=== PATIENT | female | born 1960 | race Caucasian/White ===

== ENCOUNTER 2016-11-25 11:20 | Outpatient (CLI) | payer MEDICAID, MEDICARE ==
[2016-11-25 12:20] LABS: Eosinophils 3 % (0-10); Hemoglobin 12.1 g/dL (12.0-16.0); Lymphocytes 35 % (21-51); MDiff Complete? YES; Mean Corpuscular HGB CONC 34.3 g/dL (32.0-36.0); Mean Corpuscular Hemoglobin 32.6 pg (27.0-31.0); Mean Corpuscular Volume 95.1 fl (81.0-99.0); Mean Platelet Volume 8.4 fL (7.4-10.4); Monocytes 1 % (0-10); Neutrophil 61 % (42-75); PLT Morphology Comment PT HAS HX OF LOW PLATELET COUNT; Platelet Count 54 thou/uL (130-400); RBC Distribution Width 13.1 % (11.5-14.5)
[2016-11-25 13:17] LABS: White Blood Cell (WBC) Count 1.8 thou/uL (4.8-10.8)
[2016-11-25 15:45] LABS: ALT (SGPT) 16 U/L (0-55); AST (SGOT) 27 U/L (5-34); Albumin 3.2 g/dL (3.5-5.0); Alkaline Phosphatase 49 U/L (40-150); Anion Gap 10 mmol/L (10-20); BUN (Urea Nitrogen) 11 mg/dL (9.8-20.1); Bilirubin, Total 1.1 mg/dL (0.2-1.2); Calc. Creatinine Clearance 0 mL/min (70-130); Calcium 8.6 mg/dL (7.8-10.44); Carbon Dioxide 28 mmol/L (22-29); Cardiac Risk 2.7 (Less than 4.5); Chloride 108 mmol/L (98-107); Cholesterol 114 mg/dL (< 200 Desired); Estimated GFR-MDRD Greater than 90; Globulin 2.2 g/dL (2.4-3.5); Glucose 86 mg/dL (70-105); HDL Cholesterol 43 mg/dL (>60 Neg Risk); LDL Cholesterol, Calculated 60 mg/dL; Potassium 4.6 mmol/L (3.5-5.1); Protein, Total 5.4 g/dL (6.0-8.3); Sodium 141 mmol/L (136-145); Triglycerides 57 mg/dL (Less than 150)
== END 2016-11-25 11:21 | disposition home or self-care (01) ==
LOC: MADLAB 11:20 → MADLABBHPM 11:21
PROVIDERS: ATTEND Family Medicine
DX: R60.0 Localized edema (principal)
CPT/HCPCS: 36415; 80053; 80061; 83880; 85025

== ENCOUNTER 2017-03-05 17:33 | Inpatient (IN) | payer MEDICARE, MEDICAID ==
[2017-03-05] MEDS ORDERED: Ibuprofen 600 MG TAB PO PRN (18:08)
[2017-03-05] MEDS ORDERED: Isosorbide Dinitrate 10 MG TAB PO SCH (21:00)
[2017-03-05] MEDS: HYDROcodone/Acetaminophen 10/325 mg Tablet PO PRN (21:15)
[2017-03-06] MEDS: HYDROcodone/Acetaminophen 10/325 mg Tablet PO PRN (01:19)
[2017-03-06 05:27] LABS: Hemoglobin 7.1 g/dL (12.0-16.0); Mean Corpuscular HGB CONC 34.7 g/dL (32.0-36.0); Mean Corpuscular Hemoglobin 32.3 pg (27.0-31.0); Mean Corpuscular Volume 93.3 fl (81.0-99.0); Mean Platelet Volume 8.6 fL (7.4-10.4); Platelet Count 70 thou/uL (130-400); Red Blood Cell (RBC) Count 2.18 mill/uL (4.20-5.40); White Blood Cell (WBC) Count 3.3 thou/uL (4.8-10.8)
[2017-03-06 05:28] LABS: Anion Gap 10 mmol/L (10-20); BUN (Urea Nitrogen) 8 mg/dL (9.8-20.1); Calc. Creatinine Clearance 131 mL/min (70-130); Calcium 7.6 mg/dL (7.8-10.44); Carbon Dioxide 27 mmol/L (22-29); Chloride 103 mmol/L (98-107); Estimated GFR-MDRD Greater than 90; Glucose 115 mg/dL (70-105); Potassium 3.6 mmol/L (3.5-5.1); Sodium 136 mmol/L (136-145)
[2017-03-06 05:41] LABS: Manual Diff?? YES
[2017-03-06 05:42] LABS: Eosinophils 1 % (0-10); Hypochromia SLIGHT = 6-15 cells (100X) (0-5/hpf); Lymphocytes 16 % (21-51); Monocytes 12 % (0-10); Polychromasia SLIGHT = 2-3 cells (100X) (0-2/hpf)
[2017-03-06 05:43] LABS: PLT Morphology Comment Appears Decreased
[2017-03-06 05:44] LABS: MDiff Complete? YES
[2017-03-06 05:46] LABS: Neutrophil 71 % (42-75)
[2017-03-06] MEDS ORDERED: Ascorbic Acid 500 mg Chewable Tablet PO SCH ×2 (08:00→12:00)
[2017-03-06] MEDS: HYDROcodone/Acetaminophen 10/325 mg Tablet PO SCH ×4 (09:06→20:23)
[2017-03-06] MEDS: Nadolol 40 MG TAB PO SCH (09:08)
[2017-03-06] MEDS: Isosorbide Dinitrate 10 MG TAB PO SCH (09:09)
[2017-03-06] MEDS: Furosemide 40 MG TAB PO SCH (09:10)
[2017-03-06] MEDS: Aspirin 81 mg Enteric Coated Tablet PO SCH (09:10)
[2017-03-06] MEDS: Losartan Potassium 25 MG TAB PO SCH (09:10)
[2017-03-06] MEDS: Atorvastatin Calcium 10 MG TAB PO SCH (09:10)
[2017-03-06] MEDS: Ferrous Sulfate 325 MG TAB PO SCH ×2 (09:10→16:28)
[2017-03-06] MEDS: Calcium Carbonate + Vit D 1 TAB PO SCH (09:10)
[2017-03-06] MEDS: Spironolactone 25 MG TAB PO SCH ×2 (09:10→16:28)
[2017-03-06] MEDS ORDERED: Simethicone Chewable 80 MG TAB PO PRN (12:06)
[2017-03-06] MEDS: Mag-Al Plus 1200 MG/1200 MG/120 MG/30 ML UDCUP PO PRN (12:18)
[2017-03-06] MEDS ORDERED: traMADol HCl 50 MG TAB PO SCH (14:30)
[2017-03-06] MEDS: Famotidine 20 MG TAB PO SCH (20:21)
[2017-03-07] MEDS: HYDROcodone/Acetaminophen 10/325 mg Tablet PO SCH ×7 (00:06→23:51)
[2017-03-07] MEDS: Nadolol 40 MG TAB PO SCH (08:20)
[2017-03-07] MEDS: Furosemide 40 MG TAB PO SCH (08:21)
[2017-03-07] MEDS: Isosorbide Dinitrate 10 MG TAB PO SCH (08:21)
[2017-03-07] MEDS: Ascorbic Acid 500 mg Chewable Tablet PO SCH (08:21)
[2017-03-07] MEDS: Atorvastatin Calcium 10 MG TAB PO SCH (08:22)
[2017-03-07] MEDS: Losartan Potassium 25 MG TAB PO SCH (08:22)
[2017-03-07] MEDS: Aspirin 81 mg Enteric Coated Tablet PO SCH (08:22)
[2017-03-07] MEDS: Ferrous Sulfate 325 MG TAB PO SCH ×2 (08:22→16:10)
[2017-03-07] MEDS: Spironolactone 25 MG TAB PO SCH (08:22)
[2017-03-07] MEDS: Calcium Carbonate + Vit D 1 TAB PO SCH (08:22)
[2017-03-07 12:39] LABS: Hemoglobin 7.8 g/dL (12.0-16.0); Mean Corpuscular HGB CONC 33.9 g/dL (32.0-36.0); Mean Corpuscular Hemoglobin 31.5 pg (27.0-31.0); Mean Corpuscular Volume 92.9 fL (81.0-99.0); Red Blood Cell (RBC) Count 2.49 mill/uL (4.20-5.40); White Blood Cell (WBC) Count 7.9 thou/uL (4.8-10.8)
[2017-03-07 12:40] LABS: #Basophils 0.1 thou/uL (0.0-0.2); #Eosinphils 0.2 thou/uL (0.0-0.7); #Lymphocytes 0.6 thou/uL (1.20-3.40); #Monocytes 0.8 thou/uL (0.11-0.59); #Neutrophils 6.2 thou/uL (1.40-6.50); %Basophils 0.7 % (0.0-1.0); %Eosinophils 2.1 % (0.0-10.0); %Lymphocytes 7.6 % (21.0-51.0); %Monocytes 10.4 % (0.0-10.0); %Neutrophils 79.3 % (42.0-75.0); Mean Platelet Volume 8.1 fL (7.4-10.4); Platelet Count 106 thou/uL (130-400); RBC Distribution Width 14.2 % (11.5-14.5)
[2017-03-07] MEDS: Sodium Chloride 0.9% 1,000 ML IV SCH ×2 (13:35→17:28)
[2017-03-07] MEDS: Famotidine 20 MG TAB PO SCH (19:50)
[2017-03-07] MEDS: Ondansetron ODT 4 MG TAB PO PRN (23:51)
[2017-03-08] MEDS: HYDROcodone/Acetaminophen 10/325 mg Tablet PO SCH ×6 (03:49→23:59)
[2017-03-08] MEDS: Calcium Carbonate + Vit D 1 TAB PO SCH (07:59)
[2017-03-08] MEDS: Atorvastatin Calcium 10 MG TAB PO SCH (07:59)
[2017-03-08] MEDS: Furosemide 40 MG TAB PO SCH (08:00)
[2017-03-08] MEDS: Aspirin 81 mg Enteric Coated Tablet PO SCH (08:00)
[2017-03-08] MEDS: Ascorbic Acid 500 mg Chewable Tablet PO SCH (08:00)
[2017-03-08] MEDS: Ferrous Sulfate 325 MG TAB PO SCH ×2 (08:00→17:21)
[2017-03-08 11:48] LABS: Hemoglobin 7.3 g/dL (12.0-16.0); Mean Corpuscular HGB CONC 34.7 g/dL (32.0-36.0); Mean Corpuscular Hemoglobin 32.3 pg (27.0-31.0); Mean Corpuscular Volume 93.2 fl (81.0-99.0); Mean Platelet Volume 8.5 fL (7.4-10.4); Platelet Count 79 thou/uL (130-400); Red Blood Cell (RBC) Count 2.27 mill/uL (4.20-5.40); White Blood Cell (WBC) Count 4.4 thou/uL (4.8-10.8)
[2017-03-08 11:49] LABS: Band 5 % (5-11); MDiff Complete? YES; Neutrophil 74 % (42-75)
[2017-03-08 11:50] LABS: Lymphocytes 12 % (21-51)
[2017-03-08 11:51] LABS: Blast 1 % (0-0); Eosinophils 1 % (0-10); Hypochromia MODERATE=16-30 cells (100X) (0-5/hpf); Monocytes 6 % (0-10); Promyelocytes 1 % (0-0); Target Cells MODERATE= 6-15 cells (100X) (0-1/hpf)
[2017-03-08 11:52] LABS: PLT Morphology Comment Appears Decreased
[2017-03-08] MEDS: Famotidine 20 MG TAB PO SCH (20:05)
[2017-03-09] MEDS: HYDROcodone/Acetaminophen 10/325 mg Tablet PO SCH ×6 (03:56→23:48)
[2017-03-09 07:29] LABS: Hemoglobin 9.1 g/dL (12.0-16.0); Mean Corpuscular HGB CONC 33.3 g/dL (32.0-36.0); Mean Corpuscular Hemoglobin 31.6 pg (27.0-31.0); Mean Corpuscular Volume 94.8 fl (81.0-99.0); Mean Platelet Volume 7.7 fL (7.4-10.4); Platelet Count 182 thou/uL (130-400); RBC Distribution Width 13.9 % (11.5-14.5); Red Blood Cell (RBC) Count 2.86 mill/uL (4.20-5.40); White Blood Cell (WBC) Count 8.6 thou/uL (4.8-10.8)
[2017-03-09 07:35] LABS: MDiff Complete? YES; Manual Diff?? YES
[2017-03-09 07:39] LABS: Band 1 % (5-11); Lymphocytes 10 % (21-51); Monocytes 8 % (0-10); Neutrophil 81 % (42-75)
[2017-03-09 07:40] LABS: Anisocytosis SLIGHT = 6-15 cells (100X) (0-5/hpf); PLT Morphology Comment Appears Adequate
[2017-03-09] MEDS: Furosemide 40 MG TAB PO SCH (07:57)
[2017-03-09] MEDS: Atorvastatin Calcium 10 MG TAB PO SCH (07:57)
[2017-03-09] MEDS: Ferrous Sulfate 325 MG TAB PO SCH ×2 (07:57→17:11)
[2017-03-09] MEDS: Calcium Carbonate + Vit D 1 TAB PO SCH (07:57)
[2017-03-09] MEDS: Ascorbic Acid 500 mg Chewable Tablet PO SCH (07:57)
--- NOTE | 2017-03-09 11:21 | RAD ---
PORTABLE UPRIGHT FRONTAL CHEST RADIOGRAPH: DATE: 03/09/17. COMPARISON: 05/31/13. HISTORY: Shortness of breath. FINDINGS: Midline sternotomy wires and mediastinal clips are present. Heart and mediastinal contours are stab le. No pneumothorax, pleural fluid, focal consolidation, or alveolar edema. IMPRESSION: No acute findings. POS: [facility]
[2017-03-09] MEDS ORDERED: Sodium Chloride 0.9% 1,000 ML BAG ONE (13:13)
[2017-03-09] MEDS: Famotidine 20 MG TAB PO SCH (19:56)
[2017-03-09] MEDS: traMADol HCl 50 MG TAB PO PRN (20:00)
[2017-03-09] MEDS: Ondansetron ODT 4 MG TAB PO PRN (23:47)
[2017-03-10] MEDS: HYDROcodone/Acetaminophen 10/325 mg Tablet PO SCH ×5 (03:50→23:46)
[2017-03-10] MEDS: Furosemide 40 MG TAB PO SCH (08:14)
[2017-03-10] MEDS: Ferrous Sulfate 325 MG TAB PO SCH ×2 (08:14→17:43)
[2017-03-10] MEDS: Ascorbic Acid 500 mg Chewable Tablet PO SCH (08:14)
[2017-03-10] MEDS: Calcium Carbonate + Vit D 1 TAB PO SCH (08:14)
[2017-03-10] MEDS: Atorvastatin Calcium 10 MG TAB PO SCH (08:15)
[2017-03-10] MEDS: Famotidine 20 MG TAB PO SCH ×2 (19:58→19:59)
[2017-03-10] MEDS: Ondansetron ODT 4 MG TAB PO PRN (20:02)
[2017-03-10] MEDS ORDERED: diphenhydrAMINE HCl 25 MG CAP PO PRN (20:36)
[2017-03-11] MEDS: traMADol HCl 50 MG TAB PO PRN ×3 (02:41→22:03)
[2017-03-11] MEDS: Ondansetron ODT 4 MG TAB PO PRN ×3 (02:42→22:03)
[2017-03-11 05:03] LABS: ALT (SGPT) 8 U/L (8-55); AST (SGOT) 14 U/L (5-34); Albumin 2.3 g/dL (3.5-5.0); Alkaline Phosphatase 48 U/L (40-150); Anion Gap 11 mmol/L (10-20); BUN (Urea Nitrogen) 6 mg/dL (9.8-20.1); Bilirubin, Total 0.6 mg/dL (0.2-1.2); Calc. Creatinine Clearance 176 mL/min (70-130); Calcium 7.9 mg/dL (7.8-10.44); Carbon Dioxide 31 mmol/L (22-29); Chloride 97 mmol/L (98-107); Estimated GFR-MDRD Greater than 90; Globulin 2.5 g/dL (2.4-3.5); Glucose 116 mg/dL (70-105); Potassium 4.2 mmol/L (3.5-5.1); Protein, Total 4.8 g/dL (6.0-8.3); Sodium 135 mmol/L (136-145)
[2017-03-11 05:17] LABS: Eosinophils 2 % (0-10); Hypochromia SLIGHT = 6-15 cells (100X) (0-5/hpf); Lymphocytes 5 % (21-51); MDiff Complete? YES; Monocytes 9 % (0-10); Neutrophil 81 % (42-75); PLT Morphology Comment PLT clumps seen-LOW; Polychromasia SLIGHT = 2-3 cells (100X) (0-2/hpf); Reactive Lymphocytes 3 % (0-10)
[2017-03-11 05:19] LABS: Hemoglobin 7.5 g/dL (12.0-16.0); Red Blood Cell (RBC) Count 2.36 mill/uL (4.20-5.40); White Blood Cell (WBC) Count 3.5 thou/uL (4.8-10.8)
[2017-03-11 05:20] LABS: Manual Diff?? YES; Mean Corpuscular HGB CONC 33.9 g/dL (32.0-36.0); Mean Corpuscular Hemoglobin 31.6 pg (27.0-31.0); Mean Corpuscular Volume 93.2 fL (81.0-99.0); Mean Platelet Volume 7.3 fL (7.4-10.4); Platelet Count 108 thou/uL (130-400); RBC Distribution Width 13.8 % (11.5-14.5)
[2017-03-11] MEDS: HYDROcodone/Acetaminophen 10/325 mg Tablet PO SCH ×2 (05:47→09:00)
[2017-03-11] MEDS: Ferrous Sulfate 325 MG TAB PO SCH ×2 (07:44→17:21)
[2017-03-11] MEDS: Calcium Carbonate + Vit D 1 TAB PO SCH (07:44)
[2017-03-11] MEDS: Atorvastatin Calcium 10 MG TAB PO SCH (08:55)
[2017-03-11] MEDS: Ascorbic Acid 500 mg Chewable Tablet PO SCH (08:55)
[2017-03-11] MEDS: Furosemide 40 MG TAB PO SCH (08:55)
[2017-03-11] MEDS ORDERED: Mupirocin 2% Ointment 22 GM Tube TOP PRN (09:07)
[2017-03-11] MEDS ORDERED: Triamcinolone 0.1% Cream 15 GM TUBE TOP PRN (09:09)
[2017-03-11] MEDS ORDERED: Lantiseptic Ointment 130 GM JAR TOP PRN (15:05)
[2017-03-11] MEDS ORDERED: Hydrocortisone 1% Cream 30 GM TUBE TOP PRN (15:12)
[2017-03-11] MEDS: Mag-Al Plus 1200 MG/1200 MG/120 MG/30 ML UDCUP PO PRN (19:17)
[2017-03-11] MEDS: Famotidine 20 MG TAB PO SCH (19:18)
[2017-03-11] MEDS: HYDROcodone/Acetaminophen 10/325 mg Tablet PO PRN (19:23)
[2017-03-12] MEDS ORDERED: Morphine Sulfate 2 MG/ML SYRINGE SLOW IVP SCH (00:15)
[2017-03-12] MEDS ORDERED: Morphine Sulfate 2 MG/ML SYRINGE SLOW IVP ONE (07:30)
[2017-03-12] MEDS ORDERED: Morphine Sulfate 2 MG/ML SYRINGE ONE ×2 (07:32→11:11)
[2017-03-12] MEDS: Spironolactone 25 MG TAB PO SCH (07:56)
[2017-03-12] MEDS: Ascorbic Acid 500 mg Chewable Tablet PO SCH (07:56)
[2017-03-12] MEDS: Calcium Carbonate + Vit D 1 TAB PO SCH (07:56)
[2017-03-12] MEDS: Atorvastatin Calcium 10 MG TAB PO SCH (07:56)
[2017-03-12] MEDS: Ferrous Sulfate 325 MG TAB PO SCH ×2 (07:56→16:59)
[2017-03-12] MEDS: Furosemide 40 MG TAB PO SCH (07:58)
[2017-03-12] MEDS: HYDROcodone/Acetaminophen 10/325 mg Tablet PO PRN ×3 (11:05→23:51)
[2017-03-12] MEDS: Morphine Sulfate 2 MG/ML SYRINGE SLOW IVP PRN ×2 (16:55→23:14)
[2017-03-13] MEDS ORDERED: Morphine Sulfate 2 MG/ML SYRINGE SLOW IVP SCH ×2 (02:15→11:45)
[2017-03-13] MEDS: Mag-Al Plus 1200 MG/1200 MG/120 MG/30 ML UDCUP PO PRN ×2 (02:40→17:33)
[2017-03-13] MEDS: traMADol HCl 50 MG TAB PO PRN (04:15)
[2017-03-13] MEDS: Ondansetron ODT 4 MG TAB PO PRN (04:15)
[2017-03-13] MEDS: HYDROcodone/Acetaminophen 10/325 mg Tablet PO PRN ×3 (05:44→22:05)
[2017-03-13] MEDS: Atorvastatin Calcium 10 MG TAB PO SCH (08:50)
[2017-03-13] MEDS: clonazePAM 0.5 MG TAB PO SCH (08:50)
[2017-03-13] MEDS: Calcium Carbonate + Vit D 1 TAB PO SCH (08:51)
[2017-03-13] MEDS: Ferrous Sulfate 325 MG TAB PO SCH ×2 (08:51→17:14)
[2017-03-13] MEDS: Morphine Sulfate 2 MG/ML SYRINGE SLOW IVP PRN ×2 (08:51→11:29)
[2017-03-13] MEDS: Furosemide 40 MG TAB PO SCH (08:52)
[2017-03-13] MEDS: Ascorbic Acid 500 mg Chewable Tablet PO SCH (08:52)
[2017-03-13] MEDS: Spironolactone 25 MG TAB PO SCH (08:52)
[2017-03-13 09:16] LABS: Hemoglobin 8.2 g/dL (12.0-16.0); Mean Corpuscular HGB CONC 32.5 g/dL (32.0-36.0); Mean Corpuscular Hemoglobin 30.5 pg (27.0-31.0); Mean Platelet Volume 7.6 fL (7.4-10.4); Platelet Count 122 thou/uL (130-400); Red Blood Cell (RBC) Count 2.69 mill/uL (4.20-5.40); White Blood Cell (WBC) Count 2.8 thou/uL (4.8-10.8)
[2017-03-13 09:55] LABS: ALT (SGPT) 12 U/L (8-55); AST (SGOT) 19 U/L (5-34); Albumin 2.4 g/dL (3.5-5.0); Alkaline Phosphatase 51 U/L (40-150); Anion Gap 11 mmol/L (10-20); BUN (Urea Nitrogen) 7 mg/dL (9.8-20.1); Bilirubin, Total 0.7 mg/dL (0.2-1.2); Calc. Creatinine Clearance 176 mL/min (70-130); Calcium 8.1 mg/dL (7.8-10.44); Carbon Dioxide 31 mmol/L (22-29); Chloride 98 mmol/L (98-107); Estimated GFR-MDRD Greater than 90; Globulin 2.8 g/dL (2.4-3.5); Glucose 142 mg/dL (70-105); Potassium 4.1 mmol/L (3.5-5.1); Protein, Total 5.2 g/dL (6.0-8.3); Sodium 136 mmol/L (136-145)
[2017-03-13 10:14] LABS: Band 1 % (5-11); MDiff Complete? YES; Manual Diff?? YES; Neutrophil 65 % (42-75)
[2017-03-13 10:16] LABS: Anisocytosis SLIGHT = 6-15 cells (100X) (0-5/hpf); Eosinophils 2 % (0-10); Lymphocytes 22 % (21-51); Monocytes 10 % (0-10); PLT Morphology Comment Appears Adequate
--- NOTE | 2017-03-13 10:16 | RAD ---
PORTABLE CHEST: HISTORY: Hypoxia. COMPARISON: 03/09/17. FINDINGS: There is increased opacification in the right lung base when compared to the prior study. Findings indicate right basilar atelectasis and consolidation with right effusion. The left lung remains clear. The heart is mildly prominent with mild vascular engorgement. IMPRESSION: New opacification in the right lung base. POS: [facility]
[2017-03-13] MEDS: Famotidine 20 MG TAB PO SCH (21:53)
[2017-03-14] MEDS: clonazePAM 0.5 MG TAB PO SCH ×3 (03:06→20:48)
[2017-03-14] MEDS: HYDROcodone/Acetaminophen 10/325 mg Tablet PO PRN ×2 (04:45→12:47)
[2017-03-14] MEDS: Ferrous Sulfate 325 MG TAB PO SCH ×2 (07:39→17:29)
[2017-03-14] MEDS: Spironolactone 25 MG TAB PO SCH (07:39)
[2017-03-14] MEDS: Calcium Carbonate + Vit D 1 TAB PO SCH (07:39)
[2017-03-14] MEDS: Atorvastatin Calcium 10 MG TAB PO SCH (08:20)
[2017-03-14] MEDS: Ascorbic Acid 500 mg Chewable Tablet PO SCH (08:20)
[2017-03-14] MEDS: Furosemide 40 MG TAB PO SCH (08:20)
[2017-03-14] MEDS ORDERED: Iopamidol 370 76% 100 ML VIAL ONE (10:26)
[2017-03-14] MEDS: Ondansetron ODT 4 MG TAB PO PRN (17:38)
[2017-03-14] MEDS: traMADol HCl 50 MG TAB PO PRN (17:38)
[2017-03-14] MEDS: Famotidine 20 MG TAB PO SCH (20:47)
[2017-03-15] MEDS: Morphine Sulfate 2 MG/ML SYRINGE SLOW IVP PRN ×5 (00:34→19:15)
[2017-03-15] MEDS: HYDROcodone/Acetaminophen 10/325 mg Tablet PO PRN ×3 (05:43→17:35)
[2017-03-15] MEDS: Calcium Carbonate + Vit D 1 TAB PO SCH (07:11)
[2017-03-15] MEDS: Spironolactone 25 MG TAB PO SCH (07:11)
[2017-03-15] MEDS: Ferrous Sulfate 325 MG TAB PO SCH ×2 (07:11→17:32)
[2017-03-15] MEDS: Mag-Al Plus 1200 MG/1200 MG/120 MG/30 ML UDCUP PO PRN (07:47)
[2017-03-15] MEDS: Ondansetron ODT 4 MG TAB PO PRN ×2 (08:12→19:22)
[2017-03-15] MEDS: traMADol HCl 50 MG TAB PO PRN ×2 (08:12→19:16)
[2017-03-15] MEDS: Ascorbic Acid 500 mg Chewable Tablet PO SCH (08:13)
[2017-03-15] MEDS: clonazePAM 0.5 MG TAB PO SCH ×2 (08:13→21:33)
[2017-03-15] MEDS: Furosemide 40 MG TAB PO SCH (08:13)
[2017-03-15] MEDS: Atorvastatin Calcium 10 MG TAB PO SCH (08:13)
[2017-03-15] MEDS ORDERED: Simethicone Chewable 80 MG TAB PO PRN (11:43)
--- NOTE | 2017-03-15 14:28 | CT ---
CT ABDOMEN AND PELVIS WITHOUT CONTRAST: Technique: Multiple axial tomograms were obtained through the abdomen and pelvis without IV enhancem ent. Oral contrast was not given although there is contrast in the colon, presumably from a prior CT from 03-03-17. Comparison: 03-03-17 FINDINGS: There is now a large right pleural effusion which has occurred since the prior CT. There is associat ed compressive atelectasis in the right lung base. Images through the abdomen again show numerous gallstones and a mildly distended gallbladder. There is pericholecystic edema. There is splenomegaly with evidence of portal hypertension again noted wit h varices in the upper abdomen. Liver is homogeneous and is somewhat small suggesting changes of cir rhosis. Kidneys show no evidence of hydronephrosis. Small bowel loops show nonspecific distention without dilatation. No evidence of bowel obstruction. There is contrast throughout the colon with scattered stool throughout the colon. There is a colosto my in the left lower quadrant. There is a moderate amount of free fluid in the lower abdomen and deep pelvis. There is an abnormal fluid dense collection seen in the deep pelvis posterior to the uterus at the site of the Mukund's pouch. This fluid collection appears to be loculated and there is a tiny extraluminal gas pocket in the upper portion of this fluid collection to the left of midline. Considerations include abscess i n the deep pelvis versus fluid distention of the Mukund's pouch. This apparent loculated fluid col lection is measured at approximately 7 cm AP x 7.5 cm width in the axial plane. Recommend rectal exa mination to further differentiate this finding. There is an open midline wound in the subcutaneous tissues without subcutaneous abscess collection. IMPRESSION: 1. Large right pleural effusion has occurred since prior exam. 2. Cholelithiasis again noted. There are inflammatory changes surrounding a mildly distended gallbla dder with evidence of pericholecystic edema. 3. Abnormal fluid collection in the deep pelvis posterior to the uterus at the location of the rectu m and Mukund's pouch. This could represent loculated fluid or abscess versus dilatation of the dontae nina Mukund's pouch. Recommend rectal examination to further evaluate. 4. There are changes of portal hypertension again noted as described. 5. Superior mesenteric vein thrombosis again noted and unchanged from prior exam. POS: [facility]
[2017-03-15] MEDS: Famotidine 20 MG TAB PO SCH (21:36)
[2017-03-16] MEDS: HYDROcodone/Acetaminophen 10/325 mg Tablet PO PRN ×4 (01:42→19:10)
[2017-03-16] MEDS: Morphine Sulfate 2 MG/ML SYRINGE SLOW IVP PRN ×3 (01:43→14:06)
[2017-03-16] MEDS: Ascorbic Acid 500 mg Chewable Tablet PO SCH ×2 (08:23→08:26)
[2017-03-16] MEDS: Ferrous Sulfate 325 MG TAB PO SCH ×2 (08:24→17:15)
[2017-03-16] MEDS: Calcium Carbonate + Vit D 1 TAB PO SCH (08:24)
[2017-03-16] MEDS: Spironolactone 25 MG TAB PO SCH ×2 (08:24→17:15)
[2017-03-16] MEDS: Furosemide 40 MG TAB PO SCH (08:24)
[2017-03-16] MEDS: clonazePAM 0.5 MG TAB PO SCH ×2 (08:25→21:27)
[2017-03-16] MEDS: Atorvastatin Calcium 10 MG TAB PO SCH (08:27)
[2017-03-16] MEDS: Simethicone Chewable 80 MG TAB PO SCH ×2 (13:16→17:15)
[2017-03-16] MEDS: Famotidine 20 MG TAB PO SCH (21:27)
[2017-03-16] MEDS: Mag-Al Plus 1200 MG/1200 MG/120 MG/30 ML UDCUP PO PRN (21:33)
[2017-03-17] MEDS: Morphine Sulfate 2 MG/ML SYRINGE SLOW IVP PRN ×4 (02:32→18:25)
[2017-03-17] MEDS: HYDROcodone/Acetaminophen 10/325 mg Tablet PO PRN ×4 (03:08→17:34)
[2017-03-17] MEDS: Ferrous Sulfate 325 MG TAB PO SCH ×2 (08:10→17:13)
[2017-03-17] MEDS: Furosemide 40 MG TAB PO SCH (08:10)
[2017-03-17] MEDS: clonazePAM 0.5 MG TAB PO SCH ×2 (08:10→23:20)
[2017-03-17] MEDS: Spironolactone 25 MG TAB PO SCH ×2 (08:11→17:13)
[2017-03-17] MEDS: Atorvastatin Calcium 10 MG TAB PO SCH (08:11)
[2017-03-17] MEDS: Simethicone Chewable 80 MG TAB PO SCH ×3 (08:11→17:12)
[2017-03-17] MEDS: Calcium Carbonate + Vit D 1 TAB PO SCH (08:11)
[2017-03-17 09:09] LABS: ALT (SGPT) 9 U/L (8-55); AST (SGOT) 16 U/L (5-34); Albumin 2.3 g/dL (3.5-5.0); Alkaline Phosphatase 51 U/L (40-150); Anion Gap 10 mmol/L (10-20); BUN (Urea Nitrogen) 7 mg/dL (9.8-20.1); Bilirubin, Total 0.7 mg/dL (0.2-1.2); Calc. Creatinine Clearance 186 mL/min (70-130); Calcium 8.1 mg/dL (7.8-10.44); Carbon Dioxide 31 mmol/L (22-29); Chloride 99 mmol/L (98-107); Estimated GFR-MDRD Greater than 90; Globulin 2.7 g/dL (2.4-3.5); Glucose 102 mg/dL (70-105); Potassium 4.1 mmol/L (3.5-5.1); Sodium 136 mmol/L (136-145)
[2017-03-17 09:13] LABS: Hemoglobin 8.2 g/dL (12.0-16.0); Mean Corpuscular HGB CONC 31.9 g/dL (32.0-36.0); Mean Corpuscular Hemoglobin 29.2 pg (27.0-31.0); Mean Corpuscular Volume 91.4 fl (81.0-99.0); Mean Platelet Volume 7.5 fL (7.4-10.4); Platelet Count 128 thou/uL (130-400); RBC Distribution Width 14.4 % (11.5-14.5); Red Blood Cell (RBC) Count 2.82 mill/uL (4.20-5.40); White Blood Cell (WBC) Count 2.6 thou/uL (4.8-10.8)
[2017-03-17 09:34] LABS: Manual Diff?? YES
[2017-03-17 09:35] LABS: Band 4 % (5-11); Eosinophils 5 % (0-10); Lymphocytes 26 % (21-51); Monocytes 7 % (0-10); Neutrophil 58 % (42-75)
[2017-03-17 09:49] LABS: Anisocytosis SLIGHT = 6-15 cells (100X) (0-5/hpf); Hypochromia SLIGHT = 6-15 cells (100X) (0-5/hpf); PLT Morphology Comment Appears Adequate; Poikilocytosis SLIGHT = 6-15 cells (100X) (0-5/hpf)
[2017-03-17 11:15] LABS: Large Platelets SLIGHT; MDiff Complete? YES
[2017-03-17] MEDS: Ondansetron ODT 4 MG TAB PO PRN (17:15)
[2017-03-17] MEDS: traMADol HCl 50 MG TAB PO PRN (19:36)
[2017-03-17] MEDS: Famotidine 20 MG TAB PO SCH (20:58)
[2017-03-18] MEDS: HYDROcodone/Acetaminophen 10/325 mg Tablet PO PRN ×2 (01:54→17:09)
[2017-03-18] MEDS: Simethicone Chewable 80 MG TAB PO SCH ×3 (08:28→17:04)
[2017-03-18] MEDS: Ascorbic Acid 500 mg Chewable Tablet PO SCH (08:28)
[2017-03-18] MEDS: Calcium Carbonate + Vit D 1 TAB PO SCH (08:28)
[2017-03-18] MEDS: Ferrous Sulfate 325 MG TAB PO SCH ×2 (08:28→17:03)
[2017-03-18] MEDS: Spironolactone 25 MG TAB PO SCH ×2 (08:28→17:04)
[2017-03-18] MEDS: Furosemide 40 MG TAB PO SCH (08:29)
[2017-03-18] MEDS: clonazePAM 0.5 MG TAB PO SCH ×2 (08:29→23:41)
[2017-03-18] MEDS: Atorvastatin Calcium 10 MG TAB PO SCH (08:29)
[2017-03-18] MEDS: Morphine Sulfate 2 MG/ML SYRINGE SLOW IVP PRN (13:15)
[2017-03-18] MEDS: Famotidine 20 MG TAB PO SCH (20:38)
[2017-03-19] MEDS: HYDROcodone/Acetaminophen 10/325 mg Tablet PO PRN ×2 (05:42→16:44)
[2017-03-19] MEDS: clonazePAM 0.5 MG TAB PO SCH ×2 (08:25→20:59)
[2017-03-19] MEDS: Calcium Carbonate + Vit D 1 TAB PO SCH (08:26)
[2017-03-19] MEDS: Atorvastatin Calcium 10 MG TAB PO SCH (08:26)
[2017-03-19] MEDS: Spironolactone 25 MG TAB PO SCH ×2 (08:26→16:50)
[2017-03-19] MEDS: Simethicone Chewable 80 MG TAB PO SCH ×3 (08:26→16:51)
[2017-03-19] MEDS: Ascorbic Acid 500 mg Chewable Tablet PO SCH (08:26)
[2017-03-19] MEDS: Furosemide 40 MG TAB PO SCH (08:27)
[2017-03-19] MEDS: Ferrous Sulfate 325 MG TAB PO SCH ×2 (08:27→16:50)
[2017-03-19] MEDS: Morphine Sulfate 2 MG/ML SYRINGE SLOW IVP PRN ×4 (13:05→21:48)
[2017-03-19] MEDS: traMADol HCl 50 MG TAB PO PRN (19:03)
[2017-03-19] MEDS: Famotidine 20 MG TAB PO SCH (20:59)
[2017-03-19] MEDS ORDERED: Morphine Sulfate 2 MG/ML SYRINGE ONE (21:37)
[2017-03-19] MEDS ORDERED: Lidocaine 4% Cream 5 GM TUBE w/ Tegaderm ONE (21:37)
[2017-03-20] MEDS ORDERED: Morphine Sulfate 2 MG/ML SYRINGE ONE ×4 (00:09→10:29)
[2017-03-20] MEDS: Morphine Sulfate 2 MG/ML SYRINGE SLOW IVP PRN ×2 (00:15→05:14)
[2017-03-20] MEDS: HYDROcodone/Acetaminophen 10/325 mg Tablet PO PRN ×5 (00:17→17:43)
[2017-03-20] MEDS ORDERED: Morphine Sulfate 2 MG/ML SYRINGE SLOW IVP SCH (06:15)
[2017-03-20] MEDS ORDERED: Morphine Sulfate 2 MG/ML SYRINGE SLOW IVP PRN (08:20)
[2017-03-20] MEDS: Ascorbic Acid 500 mg Chewable Tablet PO SCH (09:06)
[2017-03-20] MEDS: Furosemide 40 MG TAB PO SCH (09:06)
[2017-03-20] MEDS: Ferrous Sulfate 325 MG TAB PO SCH ×2 (09:07→17:36)
[2017-03-20] MEDS: Atorvastatin Calcium 10 MG TAB PO SCH (09:07)
[2017-03-20] MEDS: Ondansetron ODT 4 MG TAB PO PRN (09:07)
[2017-03-20] MEDS: Spironolactone 25 MG TAB PO SCH ×2 (09:07→17:36)
[2017-03-20] MEDS: Simethicone Chewable 80 MG TAB PO SCH ×3 (09:08→17:36)
[2017-03-20] MEDS: Calcium Carbonate + Vit D 1 TAB PO SCH (09:08)
[2017-03-20] MEDS: traMADol HCl 50 MG TAB PO PRN (12:03)
[2017-03-20] MEDS ORDERED: clonazePAM 0.5 MG TAB PO PRN (17:08)
[2017-03-20] MEDS: clonazePAM 0.5 MG TAB PO SCH (22:15)
[2017-03-21] MEDS: traMADol HCl 50 MG TAB PO PRN ×2 (00:24→19:45)
[2017-03-21] MEDS: Ondansetron ODT 4 MG TAB PO PRN ×3 (00:29→19:45)
[2017-03-21] MEDS: HYDROcodone/Acetaminophen 10/325 mg Tablet PO PRN ×3 (03:32→12:16)
[2017-03-21] MEDS: Atorvastatin Calcium 10 MG TAB PO SCH (08:19)
[2017-03-21] MEDS: Ferrous Sulfate 325 MG TAB PO SCH ×2 (08:19→16:58)
[2017-03-21] MEDS: Calcium Carbonate + Vit D 1 TAB PO SCH (08:19)
[2017-03-21] MEDS: Simethicone Chewable 80 MG TAB PO SCH ×3 (08:19→16:57)
[2017-03-21] MEDS: Spironolactone 25 MG TAB PO SCH ×2 (08:19→16:58)
[2017-03-21] MEDS: Ascorbic Acid 500 mg Chewable Tablet PO SCH (08:20)
[2017-03-21] MEDS: Furosemide 40 MG TAB PO SCH (08:20)
[2017-03-21] MEDS: clonazePAM 0.5 MG TAB PO SCH (21:39)
[2017-03-22] MEDS: HYDROcodone/Acetaminophen 10/325 mg Tablet PO PRN ×4 (03:28→20:43)
[2017-03-22] MEDS: Simethicone Chewable 80 MG TAB PO SCH ×3 (08:10→16:53)
[2017-03-22] MEDS: Ascorbic Acid 500 mg Chewable Tablet PO SCH (08:11)
[2017-03-22] MEDS: Calcium Carbonate + Vit D 1 TAB PO SCH (08:11)
[2017-03-22] MEDS: Atorvastatin Calcium 10 MG TAB PO SCH (08:11)
[2017-03-22] MEDS: Spironolactone 25 MG TAB PO SCH ×2 (08:12→16:54)
[2017-03-22] MEDS: Furosemide 40 MG TAB PO SCH (08:12)
[2017-03-22] MEDS: Ferrous Sulfate 325 MG TAB PO SCH ×2 (08:12→16:54)
[2017-03-22 10:03] LABS: Anion Gap 13 mmol/L (10-20); BUN (Urea Nitrogen) 9 mg/dL (9.8-20.1); Calc. Creatinine Clearance 166 mL/min (70-130); Calcium 8.2 mg/dL (7.8-10.44); Carbon Dioxide 34 mmol/L (22-29); Chloride 92 mmol/L (98-107); Estimated GFR-MDRD Greater than 90; Glucose 156 mg/dL (70-105); Potassium 3.7 mmol/L (3.5-5.1); Sodium 135 mmol/L (136-145)
[2017-03-22 10:33] LABS: Eosinophils 4 % (0-10); Hemoglobin 8.6 g/dL (12.0-16.0); Hypochromia SLIGHT = 6-15 cells (100X) (0-5/hpf); Lymphocytes 3 % (21-51); MDiff Complete? YES; Mean Corpuscular HGB CONC 32.3 g/dL (32.0-36.0); Mean Corpuscular Hemoglobin 28.4 pg (27.0-31.0); Mean Platelet Volume 7.2 fL (7.4-10.4); Metamyelocyte 1 % (0-0); Monocytes 8 % (0-10); Neutrophil 78 % (42-75); PLT Morphology Comment Appears Decreased; Platelet Count 125 thou/uL (130-400); Polychromasia SLIGHT = 2-3 cells (100X) (0-2/hpf); RBC Distribution Width 15.3 % (11.5-14.5); Reactive Lymphocytes 6 % (0-10); Red Blood Cell (RBC) Count 3.02 mill/uL (4.20-5.40); White Blood Cell (WBC) Count 3.4 thou/uL (4.8-10.8)
[2017-03-22] MEDS: Ondansetron ODT 4 MG TAB PO PRN ×2 (11:44→18:09)
[2017-03-22] MEDS: traMADol HCl 50 MG TAB PO PRN ×2 (11:44→18:09)
[2017-03-22] MEDS: clonazePAM 0.5 MG TAB PO PRN (11:44)
[2017-03-22] MEDS: clonazePAM 0.5 MG TAB PO SCH (20:43)
[2017-03-23] MEDS: HYDROcodone/Acetaminophen 10/325 mg Tablet PO PRN ×2 (01:34→15:57)
[2017-03-23] MEDS: Simethicone Chewable 80 MG TAB PO SCH ×3 (07:33→16:54)
[2017-03-23] MEDS: Ferrous Sulfate 325 MG TAB PO SCH ×2 (07:34→16:54)
[2017-03-23] MEDS: Calcium Carbonate + Vit D 1 TAB PO SCH (07:34)
[2017-03-23] MEDS: Spironolactone 25 MG TAB PO SCH ×2 (07:35→16:54)
[2017-03-23] MEDS: Ascorbic Acid 500 mg Chewable Tablet PO SCH (08:29)
[2017-03-23] MEDS: Furosemide 40 MG TAB PO SCH (08:29)
[2017-03-23] MEDS: Atorvastatin Calcium 10 MG TAB PO SCH (08:30)
[2017-03-23] MEDS ORDERED: Sodium Chloride Irrig Solution 250 ML BOT ONE (13:09)
[2017-03-23] MEDS: clonazePAM 0.5 MG TAB PO SCH (21:12)
[2017-03-24] MEDS: Simethicone Chewable 80 MG TAB PO SCH ×3 (09:03→17:17)
[2017-03-24] MEDS: Atorvastatin Calcium 10 MG TAB PO SCH (09:04)
[2017-03-24] MEDS: Calcium Carbonate + Vit D 1 TAB PO SCH (09:04)
[2017-03-24] MEDS: Spironolactone 25 MG TAB PO SCH ×2 (09:05→17:17)
[2017-03-24] MEDS: Ascorbic Acid 500 mg Chewable Tablet PO SCH (09:05)
[2017-03-24] MEDS: Furosemide 40 MG TAB PO SCH (09:05)
[2017-03-24] MEDS: Ferrous Sulfate 325 MG TAB PO SCH ×2 (09:06→17:17)
[2017-03-24] MEDS: HYDROcodone/Acetaminophen 10/325 mg Tablet PO PRN ×2 (14:21→19:52)
[2017-03-24] MEDS: clonazePAM 0.5 MG TAB PO SCH (23:14)
[2017-03-25] MEDS: Ferrous Sulfate 325 MG TAB PO SCH ×2 (08:08→17:09)
[2017-03-25] MEDS: Simethicone Chewable 80 MG TAB PO SCH ×3 (08:09→17:09)
[2017-03-25] MEDS: Spironolactone 25 MG TAB PO SCH ×2 (08:10→17:09)
[2017-03-25] MEDS: Ascorbic Acid 500 mg Chewable Tablet PO SCH (08:10)
[2017-03-25] MEDS: Atorvastatin Calcium 10 MG TAB PO SCH (08:10)
[2017-03-25] MEDS: Furosemide 40 MG TAB PO SCH (08:10)
[2017-03-25] MEDS: Ondansetron ODT 4 MG TAB PO PRN ×2 (08:17→21:51)
[2017-03-25] MEDS: Calcium Carbonate + Vit D 1 TAB PO SCH (09:40)
[2017-03-25] MEDS: clonazePAM 0.5 MG TAB PO SCH (21:47)
[2017-03-26] MEDS: HYDROcodone/Acetaminophen 10/325 mg Tablet PO PRN ×3 (08:03→17:14)
[2017-03-26] MEDS: Ascorbic Acid 500 mg Chewable Tablet PO SCH (08:36)
[2017-03-26] MEDS: Simethicone Chewable 80 MG TAB PO SCH ×3 (08:36→17:13)
[2017-03-26] MEDS: clonazePAM 0.5 MG TAB PO PRN (08:37)
[2017-03-26] MEDS: Ferrous Sulfate 325 MG TAB PO SCH ×2 (08:38→17:15)
[2017-03-26] MEDS: Spironolactone 25 MG TAB PO SCH ×2 (08:39→17:20)
[2017-03-26] MEDS: Ondansetron ODT 4 MG TAB PO PRN (08:39)
[2017-03-26] MEDS: Furosemide 40 MG TAB PO SCH ×2 (08:40→13:10)
[2017-03-26] MEDS: Atorvastatin Calcium 10 MG TAB PO SCH (08:40)
[2017-03-26] MEDS: Calcium Carbonate + Vit D 1 TAB PO SCH (08:45)
[2017-03-26] MEDS: clonazePAM 0.5 MG TAB PO SCH (22:39)
[2017-03-27] MEDS: HYDROcodone/Acetaminophen 10/325 mg Tablet PO PRN ×4 (03:52→23:34)
[2017-03-27] MEDS: traMADol HCl 50 MG TAB PO PRN (08:03)
[2017-03-27] MEDS: Simethicone Chewable 80 MG TAB PO SCH ×3 (08:04→16:23)
[2017-03-27] MEDS: clonazePAM 0.5 MG TAB PO PRN (08:05)
[2017-03-27] MEDS: Spironolactone 25 MG TAB PO SCH ×2 (08:06→17:28)
[2017-03-27] MEDS: Atorvastatin Calcium 10 MG TAB PO SCH (08:06)
[2017-03-27] MEDS: Ascorbic Acid 500 mg Chewable Tablet PO SCH (08:06)
[2017-03-27] MEDS: Ferrous Sulfate 325 MG TAB PO SCH ×2 (08:06→17:28)
[2017-03-27] MEDS: Calcium Carbonate + Vit D 1 TAB PO SCH (08:08)
[2017-03-27] MEDS: Ondansetron ODT 4 MG TAB PO PRN ×2 (08:36→15:32)
[2017-03-27] MEDS: clonazePAM 0.5 MG TAB PO SCH (20:47)
[2017-03-28] MEDS: HYDROcodone/Acetaminophen 10/325 mg Tablet PO PRN ×3 (03:34→20:06)
[2017-03-28] MEDS: Ondansetron ODT 4 MG TAB PO PRN ×2 (05:58→11:41)
[2017-03-28] MEDS: Simethicone Chewable 80 MG TAB PO SCH ×4 (08:01→21:16)
[2017-03-28] MEDS: Spironolactone 25 MG TAB PO SCH ×2 (08:01→16:58)
[2017-03-28] MEDS: Ferrous Sulfate 325 MG TAB PO SCH ×2 (08:01→16:57)
[2017-03-28] MEDS: Calcium Carbonate + Vit D 1 TAB PO SCH (08:01)
[2017-03-28] MEDS: Polyethylene Glycol 3350 17 GM Packet PO SCH (08:03)
[2017-03-28] MEDS: Ascorbic Acid 500 mg Chewable Tablet PO SCH (08:10)
[2017-03-28] MEDS: Furosemide 40 MG TAB PO SCH (08:10)
[2017-03-28] MEDS: Atorvastatin Calcium 10 MG TAB PO SCH (08:10)
[2017-03-28] MEDS ORDERED: Morphine Sulfate 2 MG/ML SYRINGE SLOW IVP PRN (17:21)
[2017-03-28 23:06] LABS: Bilirubin Negative (Negative); Blood, Urine Trace (Negative); Clarity Clear (Clear); Glucose, Urine (Dipstick) Negative (Negative); Leukocyte Negative (Negative); Nitrite Negative (Negative); Protein, Urine (Dipstick) Negative (Neg-Trace); Renal Epithelial 0-3 HPF (0-3); Specific Gravity, Urine 1.015 (1.005-1.030); Squamous Epithelial 0-3 HPF (0-3); Transitional Epithelial 0-3 HPF (0-3); Urobilinogen 0.2 mg/dL (0.2-1.0); WBC/HPF 0-3 HPF (0-3)
[2017-03-28] MEDS: traMADol HCl 50 MG TAB PO PRN (23:08)
[2017-03-28] MEDS: clonazePAM 0.5 MG TAB PO SCH (23:09)
[2017-03-29] MEDS: HYDROcodone/Acetaminophen 10/325 mg Tablet PO PRN ×3 (03:45→19:28)
[2017-03-29] MEDS: Simethicone Chewable 80 MG TAB PO SCH ×4 (08:02→21:16)
[2017-03-29] MEDS: Calcium Carbonate + Vit D 1 TAB PO SCH (08:02)
[2017-03-29] MEDS: Ferrous Sulfate 325 MG TAB PO SCH ×2 (08:03→16:26)
[2017-03-29] MEDS: Spironolactone 25 MG TAB PO SCH ×2 (08:03→16:26)
[2017-03-29] MEDS: Atorvastatin Calcium 10 MG TAB PO SCH (08:04)
[2017-03-29] MEDS: Ascorbic Acid 500 mg Chewable Tablet PO SCH (08:04)
[2017-03-29] MEDS: Polyethylene Glycol 3350 17 GM Packet PO SCH (08:04)
[2017-03-29] MEDS: Furosemide 40 MG TAB PO SCH (08:04)
[2017-03-29] MEDS: Ondansetron ODT 4 MG TAB PO PRN ×2 (10:09→16:26)
[2017-03-29] MEDS: traMADol HCl 50 MG TAB PO PRN (16:25)
[2017-03-29] MEDS: Morphine Sulfate 10 mg/0.5 ml Oral Syringe SL PRN (19:29)
[2017-03-29] MEDS: clonazePAM 0.5 MG TAB PO SCH (22:17)
[2017-03-30] MEDS: Morphine Sulfate 10 mg/0.5 ml Oral Syringe SL PRN ×2 (02:38→13:03)
[2017-03-30] MEDS: HYDROcodone/Acetaminophen 10/325 mg Tablet PO PRN ×3 (03:06→19:39)
[2017-03-30] MEDS: Simethicone Chewable 80 MG TAB PO SCH ×4 (07:41→20:27)
[2017-03-30] MEDS: Spironolactone 25 MG TAB PO SCH ×2 (07:42→16:40)
[2017-03-30] MEDS: Ferrous Sulfate 325 MG TAB PO SCH ×2 (07:42→16:40)
[2017-03-30] MEDS: Calcium Carbonate + Vit D 1 TAB PO SCH (07:42)
[2017-03-30] MEDS: Ascorbic Acid 500 mg Chewable Tablet PO SCH (09:13)
[2017-03-30] MEDS: Furosemide 40 MG TAB PO SCH (09:13)
[2017-03-30] MEDS: Polyethylene Glycol 3350 17 GM Packet PO SCH (09:14)
[2017-03-30] MEDS: Atorvastatin Calcium 10 MG TAB PO SCH (09:14)
[2017-03-30] MEDS ORDERED: Morphine Sulfate 10 mg/0.5 ml Oral Syringe SL PRN (11:21)
--- NOTE | 2017-03-30 13:07 | PRG ---
DATE OF SERVICE: 03/30/[address] Yamila Brown. SUBJECTIVE: The patient said that she is still having some pain, it may not be as severe, but her m orphine tablets, the Roxanol solution 5 mg does not seem to give her very good relief. She is on e MS Contin 30 mg twice a day and the Roxanol for breakthrough pain. She said she does not have muc h of an appetite, but is trying to eat some and drinking some Ensure. She is due to have the wound VAC removed today. Nurses report that this wound has become very small and very clean. The patient has been up and has walked some this morning and has been sitting up in a chair. She does get disc ouraged easily. OBJECTIVE: The patient is lying in bed, had seen her earlier and she was little tearful. Now I hav e gone back and revisited with her and she looks much more comfortable and has eaten a little bit of lunch. The patient does not appear in any acute distress and looks comfortable. Her vital signs s how a temperature of 98.9, pulse 103, respirations 18, O2 sat 94%, blood pressure 116/61. The wound VAC was not removed, it was replaced this morning. The picture of it shows is very clean and it is approximately 3 cm in depth. The patient's weight is 212. Her lungs are clear. Heart, regular ra te. Abdomen soft, nontender. The patient has a wound VAC in the lower abdomen. The colostomy seem s to be functioning well. Extremities; no edema. ASSESSMENT: 1. Generalized weakness and gait abnormality. Gradually improving. 2. 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 B. Status post chemoradiation therapy. C. Status post abdominoperineal resection with colostomy on 02/25/2017. D. Followed by surgeon, Dr. Ball and oncologist Dr. Reyes. 2. Anemia secondary to blood loss from surgery is gradually improving. 3. Intractable pain. A. Overall improved, but still having pain that is not quite controlled with 5 mg of morphine for t he breakthrough. 4. Liver cirrhosis with varices and portal hypertension. A. Stable. 5. Hypertension, controlled. 6. Coronary artery disease, well-controlled. 7. Cholelithiasis. PLAN: Overall, the patient is making gradual progress, is still weak, but progressing. Pain is be tter, but still breakthrough pain not quite controlled. The patient's Roxanol will be increased to 5-10 mg q.4 h. p.r.n. breakthrough pain. We will continu e the MS Contin. We will recheck lab work tomorrow. Encouraged the patient to continue with physic al therapy. We will continue the wound VAC for now. In a couple of days they may be able to switch this to wet to dry dressing.
[2017-03-30] MEDS: Ondansetron ODT 4 MG TAB PO PRN ×2 (13:08→19:39)
[2017-03-30] MEDS ORDERED: clonazePAM 0.5 MG TAB PO SCH (22:30)
[2017-03-30] MEDS: traMADol HCl 50 MG TAB PO PRN (22:35)
[2017-03-30] MEDS: clonazePAM 0.5 MG TAB PO SCH (22:38)
[2017-03-31] MEDS: Morphine Sulfate 10 mg/0.5 ml Oral Syringe SL PRN ×3 (03:33→20:02)
[2017-03-31 05:27] LABS: INR-International Normal Ratio 1.3; Prothrombin Time 16.9 SEC (12.0-14.7)
[2017-03-31 05:58] LABS: Hemoglobin 8.3 g/dL (12.0-16.0); Mean Corpuscular HGB CONC 31.2 g/dL (32.0-36.0); Mean Corpuscular Hemoglobin 26.5 pg (27.0-31.0); Mean Corpuscular Volume 84.7 fl (81.0-99.0); Mean Platelet Volume 7.9 fL (7.4-10.4); Platelet Count 115 thou/uL (130-400); RBC Distribution Width 16.4 % (11.5-14.5); Red Blood Cell (RBC) Count 3.12 mill/uL (4.20-5.40); White Blood Cell (WBC) Count 4.5 thou/uL (4.8-10.8)
[2017-03-31 05:59] LABS: MDiff Complete? YES
[2017-03-31 06:00] LABS: Band 3 % (5-11); Lymphocytes 38 % (21-51); Monocytes 9 % (0-10); Neutrophil 50 % (42-75)
[2017-03-31 06:01] LABS: Anisocytosis SLIGHT = 6-15 cells (100X) (0-5/hpf); Delete Auto Diff?? YES; Macrocytosis SLIGHT = 6-15 cells (100X) (0-5/hpf)
[2017-03-31] MEDS: Spironolactone 25 MG TAB PO SCH ×2 (08:29→16:41)
[2017-03-31] MEDS: Calcium Carbonate + Vit D 1 TAB PO SCH (08:29)
[2017-03-31] MEDS: Atorvastatin Calcium 10 MG TAB PO SCH (08:29)
[2017-03-31] MEDS: Ferrous Sulfate 325 MG TAB PO SCH ×2 (08:29→16:42)
[2017-03-31] MEDS: Furosemide 40 MG TAB PO SCH (08:29)
[2017-03-31] MEDS: Ascorbic Acid 500 mg Chewable Tablet PO SCH (08:29)
[2017-03-31] MEDS: Simethicone Chewable 80 MG TAB PO SCH ×4 (08:29→21:03)
[2017-03-31] MEDS: Polyethylene Glycol 3350 17 GM Packet PO SCH (08:30)
[2017-03-31] MEDS ORDERED: Sodium Chloride Irrig Solution 250 ML BOT ONE (09:00)
[2017-03-31] MEDS: Ondansetron ODT 4 MG TAB PO PRN (11:28)
[2017-03-31] MEDS: HYDROcodone/Acetaminophen 10/325 mg Tablet PO PRN ×2 (11:34→16:40)
[2017-03-31] MEDS: Mirtazapine 15 MG TAB PO SCH (21:04)
[2017-03-31] MEDS: clonazePAM 0.5 MG TAB PO SCH (22:19)
[2017-04-01] MEDS: Morphine Sulfate 10 mg/0.5 ml Oral Syringe SL PRN ×2 (04:47→19:24)
[2017-04-01] MEDS ORDERED: HYDROcodone/Acetaminophen 10/325 mg Tablet ONE (05:30)
[2017-04-01] MEDS: HYDROcodone/Acetaminophen 10/325 mg Tablet PO PRN (05:36)
[2017-04-01] MEDS ORDERED: HYDROcodone/Acetaminophen 7.5/325 mg Tablet PO PRN (06:35)
[2017-04-01] MEDS: Calcium Carbonate + Vit D 1 TAB PO SCH (07:24)
[2017-04-01] MEDS: Spironolactone 25 MG TAB PO SCH ×2 (07:24→16:58)
[2017-04-01] MEDS: Simethicone Chewable 80 MG TAB PO SCH ×4 (07:24→20:28)
[2017-04-01] MEDS: Ondansetron ODT 4 MG TAB PO PRN (07:25)
[2017-04-01] MEDS: Ferrous Sulfate 325 MG TAB PO SCH ×2 (07:25→16:58)
[2017-04-01] MEDS: Furosemide 40 MG TAB PO SCH (09:01)
[2017-04-01] MEDS: Atorvastatin Calcium 10 MG TAB PO SCH (09:01)
[2017-04-01] MEDS: Polyethylene Glycol 3350 17 GM Packet PO SCH (09:01)
[2017-04-01] MEDS: Ascorbic Acid 500 mg Chewable Tablet PO SCH (09:01)
[2017-04-01] MEDS: Mag-Al Plus 1200 MG/1200 MG/120 MG/30 ML UDCUP PO PRN ×2 (10:44→15:15)
[2017-04-01] MEDS: Acetaminophen 500 MG TAB PO PRN (10:45)
[2017-04-01] MEDS: HYDROcodone/Acetaminophen 7.5/325 mg Tablet PO PRN (15:15)
[2017-04-01] MEDS: Mirtazapine 15 MG TAB PO SCH (19:23)
[2017-04-01] MEDS: clonazePAM 0.5 MG TAB PO SCH (21:32)
[2017-04-02] MEDS: HYDROcodone/Acetaminophen 7.5/325 mg Tablet PO PRN ×2 (00:16→15:22)
[2017-04-02] MEDS: Morphine Sulfate 10 mg/0.5 ml Oral Syringe SL PRN (05:40)
[2017-04-02] MEDS: Simethicone Chewable 80 MG TAB PO SCH ×4 (07:53→20:16)
[2017-04-02] MEDS: Calcium Carbonate + Vit D 1 TAB PO SCH (07:54)
[2017-04-02] MEDS: Ferrous Sulfate 325 MG TAB PO SCH ×2 (07:54→16:59)
[2017-04-02] MEDS: Spironolactone 25 MG TAB PO SCH ×2 (07:54→17:00)
[2017-04-02] MEDS: Ascorbic Acid 500 mg Chewable Tablet PO SCH (08:41)
[2017-04-02] MEDS: Furosemide 40 MG TAB PO SCH (08:41)
[2017-04-02] MEDS: Atorvastatin Calcium 10 MG TAB PO SCH (08:41)
[2017-04-02] MEDS: Polyethylene Glycol 3350 17 GM Packet PO SCH (08:41)
--- NOTE | 2017-04-02 09:06 | PRG ---
DATE OF SERVICE: 04/02/2017 SUBJECTIVE: The patient said she is feeling better today. She thinks her pain is better controlled . She is receiving the MS Contin 30 mg q.12 h. scheduled and she has Roxanol 5-10 mg q.4 h. to use for breakthrough pain. She also has hydrocodone 7.5 to use for lesser pain. The patient said she i s feeling better. She is walking a little better. Her stomach feels better. Occasionally, she has a little bloating depending upon what she eats. She has visited with the dietitian some to help se e what she can eat. She has reduced her milk and lactose intake which has helped some. OBJECTIVE: The patient was just walking back to her room with physical therapy and she is now lying down. She looks much better. Her spirits are much better and she appears comfortable in no distre ss. Her temperature is 97.1, pulse 80, respirations 20, pulse 102, sat 100% on room air. Her blood pressure 158/62. Lungs; excellent breath sounds. Lungs are clear. Heart, regular rate. Abdomen is soft, no organomegaly. The colostomy is working well. The patient has just a little bit of mild redness on the medial aspect of the colostomy. The area was not tender, there may be just a little firmness to the tissue there. The incision looks better. It has good granulation base, it measure s 3 cm x 1.5 cm at and about 1.5 cm of depth. The wound is very clean and with excellent granulatio n tissue. ASSESSMENT: 1. Generalized weakness and gait abnormality. A. Gradually improving. 2. Squamous cell carcinoma of the anus. A. T3, N0, M0. B. Status post chemoradiation therapy. C. Status post abdominoperineal resection with colostomy on 02/24/2017. D. Followed by Dr. Ball, the surgeon and oncologist, Dr. Reyes. E. Separation of skin incision is healing by secondary intention. F. Mild redness just medial to the colostomy, nontender, possibly developing cellulitis in the marie colostomy area. 3. Anemia secondary to blood loss from surgery and comorbidities, stable at last CBC checked. 4. Intractable pain. A. Overall improved. B. Managed with scheduled MS Contin and Roxanol for breakthrough pain. 5. Liver cirrhosis with varices and portal hypertension. A. Stable. 6. Hypertension. 7. Coronary artery disease, well controlled. 8. Cholelithiasis. A. Presently asymptomatic. 9. Depression and anxiety. PLAN: We will continue present care. Continue physical therapy. Continue pain management, continu e wet to dry dressing. We will observe this area where the skin is a little pink to ensure this is not evolving into a cellulitis.
[2017-04-02] MEDS: Ondansetron ODT 4 MG TAB PO PRN (14:32)
[2017-04-02] MEDS ORDERED: Acetaminophen 325 MG TAB PO PRN (20:02)
[2017-04-02] MEDS: Mirtazapine 15 MG TAB PO SCH (20:16)
[2017-04-02] MEDS: clonazePAM 0.5 MG TAB PO SCH (22:09)
[2017-04-03] MEDS: Morphine Sulfate 10 mg/0.5 ml Oral Syringe SL PRN ×2 (04:43→17:13)
[2017-04-03] MEDS: Polyethylene Glycol 3350 17 GM Packet PO SCH (08:12)
[2017-04-03] MEDS: Ferrous Sulfate 325 MG TAB PO SCH ×2 (08:15→17:15)
[2017-04-03] MEDS: Simethicone Chewable 80 MG TAB PO SCH ×4 (08:15→20:48)
[2017-04-03] MEDS: Furosemide 40 MG TAB PO SCH (08:16)
[2017-04-03] MEDS: Atorvastatin Calcium 10 MG TAB PO SCH (08:16)
[2017-04-03] MEDS: Ascorbic Acid 500 mg Chewable Tablet PO SCH (08:16)
[2017-04-03] MEDS: Calcium Carbonate + Vit D 1 TAB PO SCH (08:16)
[2017-04-03] MEDS: Spironolactone 25 MG TAB PO SCH ×2 (08:16→17:14)
[2017-04-03 12:44] LABS: Clarity Clear (Clear); Glucose, Urine (Dipstick) Negative (Negative); Leukocyte Negative (Negative); Nitrite Negative (Negative); Protein, Urine (Dipstick) Negative (Neg-Trace); Urobilinogen 0.2 mg/dL (0.2-1.0)
[2017-04-03 12:45] LABS: Bilirubin Negative (Negative); Blood, Urine Negative (Negative)
[2017-04-03 12:57] LABS: RBC/HPF 0-3 HPF (0-3); WBC/HPF 0-3 HPF (0-3)
[2017-04-03 12:58] LABS: Bacteria/HPF Rare-Few HPF (None Seen); Hyaline Casts/LPF 4-6 HYALINE CAST LPF (0-3 Hyaline); Other Casts/LPF 0-3 FINELY GRAN LPF (0-3 Hyaline)
[2017-04-03] MEDS: clonazePAM 0.5 MG TAB PO SCH (20:48)
[2017-04-03] MEDS: Acetaminophen 500 MG TAB PO PRN (20:48)
[2017-04-03] MEDS: Mirtazapine 15 MG TAB PO SCH (20:48)
--- NOTE | 2017-04-03 23:07 | PRG ---
DATE OF SERVICE: 04/03/2017 SUBJECTIVE: The patient said she feels a lot better today. She is eating better. She had been wal magalys farther. Her pain seems to be a lot better. The patient said she is wanting to try to really get off of the pain medicines and eventually get off of the morphine. OBJECTIVE: GENERAL: The patient had just walked back into the room. She looks much much better. She is in go od spirits. Her strength seems much better. VITAL SIGNS: Her temperature was 99.2, pulse 95, respirations 18, O2 sat 95% on room air and blood pressure 125/60. Her weight is 186 pounds. LUNGS: Clear. HEART: Regular rate. ABDOMEN: Soft and nontender. Colostomy in the left lower quadrant is functioning well. There was some very slight pinkness on the medial side of the colostomy. The firmness to the tissue on that a clarisse seems much less. The area was not tender. Overall, it looks less pink in the smaller area. Th e wound in the midline and the incision was developing an excellent granulation base. EXTREMITIES: In the lower extremities, there is no edema. ASSESSMENT: 1. Generalized weakness and gait abnormality. A. Improving. 2. Squamous cell carcinoma of the anus. A. T3N0M0. B. Status post chemoradiation therapy. C. Status post abdominal perineal resection with colostomy on 02/24/2017. D. Followed by Dr. Ball, the surgeon and oncologist, Dr. Reyes. E. Separation of the skin incision is healing by secondary intention and is developing an excellent granulation tissue. F. Mild redness just on the medial side of the colostomy is minimal and nontender as of 04/03/2017. 3. Anemia secondary to blood loss from surgery and comorbidities. 4. Intractable pain. A. Well controlled. 5. Liver cirrhosis with varices and portal hypertension. A. Stable. 6. Hypertension. 7. Coronary heart disease, asymptomatic. 8. Cholelithiasis, asymptomatic. 9. Depression and anxiety, much improved. PLAN: Overall, the patient looks much better. I have encouraged her to continue with physical testing supervisor apy. Continue present wound care of the mild redness or more pinkness on the medial side of the col ostomy seems to be resolving. The patient had a collection of multiple pain medications. I have st opped the tramadol and the hydrocodone. Presently, her pain will be managed with the morphine exten ded release 30 mg every 12 hours and the Roxanol 5-10 mg p.o. every 4 hours as needed. I visited wi th the patient about this and told her that she has Tylenol ordered for just mild pain and then she has got the Roxanol to use for breakthrough pain. Suggest since she is trying to get off this, she use the lower dose. Once we see that she is off this, we can do a gradual reduction in the extended release morphine. Overall, the patient looks much better. We will continue present care.
[2017-04-04] MEDS: Acetaminophen 500 MG TAB PO PRN (03:19)
[2017-04-04] MEDS: Ascorbic Acid 500 mg Chewable Tablet PO SCH (08:07)
[2017-04-04] MEDS: Simethicone Chewable 80 MG TAB PO SCH ×4 (08:07→21:06)
[2017-04-04] MEDS: Calcium Carbonate + Vit D 1 TAB PO SCH (08:08)
[2017-04-04] MEDS: Ferrous Sulfate 325 MG TAB PO SCH ×2 (08:08→17:02)
[2017-04-04] MEDS: Polyethylene Glycol 3350 17 GM Packet PO SCH (08:08)
[2017-04-04] MEDS: Spironolactone 25 MG TAB PO SCH ×2 (08:08→17:01)
[2017-04-04] MEDS: Atorvastatin Calcium 10 MG TAB PO SCH (08:08)
[2017-04-04] MEDS: Furosemide 40 MG TAB PO SCH (08:08)
--- NOTE | 2017-04-04 11:58 | PRG ---
DATE OF SERVICE: 04/04/2017 SUBJECTIVE: The patient said she is feeling better. She has been up showering, now back in her bed . She is eating a little better. Her pain seems to be well controlled. OBJECTIVE: GENERAL: The patient is lying in bed and appears very comfortable, in no distress. Her affect seem s to be happy. VITAL SIGNS: Show a temperature of 97.5, pulse is 75, respirations 16, O2 sat 97% on room air, bloo d pressure 125/59. Her weight is 186, which is stable. LUNGS: Clear. HEART: Regular rate. ABDOMEN: Soft and nontender. Colostomy is functioning well. Thus, a very slight pinkness on the m edial side of the colostomy has resolved. There is no induration of the incision. The wound is ric an, developing good granulation tissue. This area was redressed. EXTREMITIES: No edema, no areas of tenderness. ASSESSMENT: 1. Generalized weakness and gait abnormality. A. Improving. 2. Squamous cell carcinoma of the anus. A. T3, N0, M0. B. Status post chemoradiation therapy. C. Status post abdominoperineal resection with colostomy 02/24/2017. D. Followed by her surgeon, Dr. Ball and oncologist, Dr. Reyes. E. Separation of the skin incision that is healing by secondary intention and continues to improve with excellent granulation tissue. F. Mild redness just on the medial side of the colostomy has resolved as of 04/04/2017. 3. Anemia secondary to blood loss from surgery and comorbidities. 4. Intractable pain. A. Well controlled on morphine extended release and Roxanol for breakthrough pain. 5. Cirrhosis with varices and portal hypertension, stable. 6. Hypertension, controlled. 7. Coronary artery disease, status post coronary artery bypass, asymptomatic. 8. Cholelithiasis, asymptomatic. 9. Depression and anxiety, improved. 10. Generalized weakness, improved. 11. History of hepatitis C. PLAN: The patient continues to improve. Her pain seemed to be well managed. Continue physical the rapy. Continue wound care.
[2017-04-04] MEDS: Ondansetron ODT 4 MG TAB PO PRN (20:15)
[2017-04-04] MEDS: Mirtazapine 15 MG TAB PO SCH (20:15)
[2017-04-04] MEDS: clonazePAM 0.5 MG TAB PO SCH (22:02)
[2017-04-05] MEDS: Acetaminophen 500 MG TAB PO PRN (02:40)
[2017-04-05] MEDS: Simethicone Chewable 80 MG TAB PO SCH ×4 (08:20→20:08)
[2017-04-05] MEDS: Ascorbic Acid 500 mg Chewable Tablet PO SCH (08:20)
[2017-04-05] MEDS: Polyethylene Glycol 3350 17 GM Packet PO SCH (08:20)
[2017-04-05] MEDS: Spironolactone 25 MG TAB PO SCH ×2 (08:21→17:03)
[2017-04-05] MEDS: Ferrous Sulfate 325 MG TAB PO SCH ×2 (08:21→17:04)
[2017-04-05] MEDS: Furosemide 40 MG TAB PO SCH (08:21)
[2017-04-05] MEDS: Atorvastatin Calcium 10 MG TAB PO SCH (08:21)
[2017-04-05] MEDS: Calcium Carbonate + Vit D 1 TAB PO SCH (08:22)
[2017-04-05] MEDS: clonazePAM 0.5 MG TAB PO SCH (20:08)
[2017-04-05] MEDS: Mirtazapine 15 MG TAB PO SCH (20:13)
[2017-04-06] MEDS: Morphine Sulfate 10 mg/0.5 ml Oral Syringe SL PRN ×2 (03:28→13:46)
[2017-04-06] MEDS: Calcium Carbonate + Vit D 1 TAB PO SCH (08:27)
[2017-04-06] MEDS: Ascorbic Acid 500 mg Chewable Tablet PO SCH (08:27)
[2017-04-06] MEDS: Simethicone Chewable 80 MG TAB PO SCH ×4 (08:27→20:44)
[2017-04-06] MEDS: Furosemide 40 MG TAB PO SCH (08:27)
[2017-04-06] MEDS: Spironolactone 25 MG TAB PO SCH ×2 (08:28→16:54)
[2017-04-06] MEDS: Ferrous Sulfate 325 MG TAB PO SCH ×2 (08:28→16:54)
[2017-04-06] MEDS: Atorvastatin Calcium 10 MG TAB PO SCH (08:28)
[2017-04-06] MEDS: Polyethylene Glycol 3350 17 GM Packet PO SCH (08:29)
--- NOTE | 2017-04-06 11:25 | PRG ---
DATE OF SERVICE: 04/06/2017 SUBJECTIVE: The patient said she is doing better. She is walking further. Her spirits are better. The patient is not having trouble with her breathing. Her overall pain is less. She said that rachel nelson has only had to take the Roxanol last evening. She has used the Tylenol some which seems to work for the milder pain. The patient says that the Remeron, that is mirtazapine seems to cause some ove rsedation the morning after and seems to with her mind a little bit. She would like to stop this. She thinks that her depressive symptoms or far better. The clonazepam she takes does not affect her adversely and certainly has helped with her anxiety. OBJECTIVE: The patient has been up walking in the hallways this morning on her own with the use of her walker. She is now lying back in bed, looks very comfortable. Her temperature is 98, pulse 71, respirations 20, O2 sat 96%, and blood pressure 101/49. Her lungs are clear. Heart, regular rate. Abdomen, there is no redness around the colostomy. The incision is healing and has excellent gran ulation base and is very shallow. Extremities with no edema. ASSESSMENT: 1. Generalized weakness, gait abnormality, continues to improve, ambulating with the use of a walke r on her own. 2. 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 B. Status post chemoradiation therapy. C. Status post abdominoperineal resection with colostomy 02/24/2017. D. Followed by her surgeon, Dr. Ball and oncologist, Dr. Reyes. E. Separation of the skin incision that is healing by secondary intention, shows continued decrease in size with excellent granulation tissue. F. Mild redness on the medial side of the colostomy has resolved with no recurrence. 3. Anemia secondary from surgery and comorbidities. 4. Intractable pain. A. Well-controlled. 5. Cirrhosis with varices. 6. Portal hypertension is stable. 7. Hypertension, controlled. 7. Coronary artery disease. A. Status post coronary artery bypass. B. Asymptomatic. 8. Cholelithiasis, asymptomatic. 9. Depression and anxiety, controlled. 10. History of hepatitis C. PLAN: Overall, the patient is making excellent progress. Her wound is slowly closing on the abdomi nal incision. Her anxiety and depression are well controlled. She wants to stop the Remeron since is it creating some trouble with prolonged sleep and alteration in her thinking. This will be stopp ed. Continue physical therapy. The patient is using less of the morphine and as she continues to i mprove, suspect will be able to gradually taper and stop the long-acting morphine.
[2017-04-06] MEDS: Ondansetron ODT 4 MG TAB PO PRN (16:57)
[2017-04-06] MEDS: clonazePAM 0.5 MG TAB PO SCH (20:46)
[2017-04-07] MEDS: Ferrous Sulfate 325 MG TAB PO SCH ×2 (08:08→17:09)
[2017-04-07] MEDS: Calcium Carbonate + Vit D 1 TAB PO SCH (08:08)
[2017-04-07] MEDS: Polyethylene Glycol 3350 17 GM Packet PO SCH (08:08)
[2017-04-07] MEDS: Simethicone Chewable 80 MG TAB PO SCH ×4 (08:08→20:35)
[2017-04-07] MEDS: Furosemide 40 MG TAB PO SCH (08:09)
[2017-04-07] MEDS: Spironolactone 25 MG TAB PO SCH ×2 (08:09→17:09)
[2017-04-07] MEDS: Atorvastatin Calcium 10 MG TAB PO SCH (08:09)
[2017-04-07] MEDS: Ascorbic Acid 500 mg Chewable Tablet PO SCH (08:10)
[2017-04-07] MEDS: clonazePAM 0.5 MG TAB PO SCH (20:35)
[2017-04-07] MEDS: Mag-Al Plus 1200 MG/1200 MG/120 MG/30 ML UDCUP PO PRN (22:42)
[2017-04-08] MEDS: Simethicone Chewable 80 MG TAB PO SCH ×4 (07:52→20:30)
[2017-04-08] MEDS: Ferrous Sulfate 325 MG TAB PO SCH ×2 (07:53→17:06)
[2017-04-08] MEDS: Spironolactone 25 MG TAB PO SCH ×2 (07:53→17:06)
[2017-04-08] MEDS: Calcium Carbonate + Vit D 1 TAB PO SCH (07:53)
[2017-04-08] MEDS: Furosemide 40 MG TAB PO SCH (09:02)
[2017-04-08] MEDS: Ascorbic Acid 500 mg Chewable Tablet PO SCH (09:02)
[2017-04-08] MEDS: Polyethylene Glycol 3350 17 GM Packet PO SCH (09:03)
[2017-04-08] MEDS: Atorvastatin Calcium 10 MG TAB PO SCH (09:03)
[2017-04-08] MEDS: Mag-Al Plus 1200 MG/1200 MG/120 MG/30 ML UDCUP PO PRN (11:53)
[2017-04-08] MEDS: Acetaminophen 500 MG TAB PO PRN (13:14)
[2017-04-08] MEDS: Ondansetron ODT 4 MG TAB PO PRN (20:30)
[2017-04-08] MEDS: clonazePAM 0.5 MG TAB PO SCH (20:32)
[2017-04-09] MEDS: Atorvastatin Calcium 10 MG TAB PO SCH (08:15)
[2017-04-09] MEDS: Furosemide 40 MG TAB PO SCH (08:15)
[2017-04-09] MEDS: Ascorbic Acid 500 mg Chewable Tablet PO SCH (08:15)
[2017-04-09] MEDS: Calcium Carbonate + Vit D 1 TAB PO SCH (08:15)
[2017-04-09] MEDS: Spironolactone 25 MG TAB PO SCH ×2 (08:15→17:05)
[2017-04-09] MEDS: Simethicone Chewable 80 MG TAB PO SCH ×4 (08:15→20:04)
[2017-04-09] MEDS: Ferrous Sulfate 325 MG TAB PO SCH ×2 (08:16→17:05)
[2017-04-09] MEDS: Polyethylene Glycol 3350 17 GM Packet PO SCH ×3 (08:19→08:40)
[2017-04-09] MEDS: Morphine Sulfate 10 mg/0.5 ml Oral Syringe SL PRN ×2 (10:04→20:02)
[2017-04-09] MEDS: Ondansetron ODT 4 MG TAB PO PRN (15:05)
[2017-04-09] MEDS: clonazePAM 0.5 MG TAB PO SCH (21:11)
[2017-04-10] MEDS: Spironolactone 25 MG TAB PO SCH ×2 (08:13→17:13)
[2017-04-10] MEDS: Simethicone Chewable 80 MG TAB PO SCH ×4 (08:13→20:39)
[2017-04-10] MEDS: Furosemide 40 MG TAB PO SCH (08:13)
[2017-04-10] MEDS: Ascorbic Acid 500 mg Chewable Tablet PO SCH (08:13)
[2017-04-10] MEDS: Calcium Carbonate + Vit D 1 TAB PO SCH (08:13)
[2017-04-10] MEDS: Atorvastatin Calcium 10 MG TAB PO SCH (08:13)
[2017-04-10] MEDS: Ferrous Sulfate 325 MG TAB PO SCH ×2 (08:14→17:13)
[2017-04-10] MEDS: Ondansetron ODT 4 MG TAB PO PRN (15:55)
[2017-04-10] MEDS: Morphine Sulfate 10 mg/0.5 ml Oral Syringe SL PRN (17:35)
[2017-04-10] MEDS ORDERED: Ondansetron ODT 4 MG TAB PO SCH (19:30)
[2017-04-10] MEDS ORDERED: HYDROcodone/Acetaminophen 10/325 mg Tablet PO SCH (19:30)
[2017-04-10] MEDS: clonazePAM 0.5 MG TAB PO SCH (20:38)
[2017-04-10] MEDS: clonazePAM 0.5 MG TAB PO PRN (23:58)
[2017-04-11] MEDS: Morphine Sulfate 10 mg/0.5 ml Oral Syringe SL PRN ×2 (04:12→19:29)
[2017-04-11] MEDS: Simethicone Chewable 80 MG TAB PO SCH ×4 (08:22→20:41)
[2017-04-11] MEDS: Ascorbic Acid 500 mg Chewable Tablet PO SCH (08:23)
[2017-04-11] MEDS: Spironolactone 25 MG TAB PO SCH ×2 (08:23→17:03)
[2017-04-11] MEDS: Furosemide 40 MG TAB PO SCH (08:23)
[2017-04-11] MEDS: Calcium Carbonate + Vit D 1 TAB PO SCH (08:24)
[2017-04-11] MEDS: Atorvastatin Calcium 10 MG TAB PO SCH (08:24)
[2017-04-11] MEDS: Ferrous Sulfate 325 MG TAB PO SCH ×2 (08:25→17:03)
[2017-04-11] MEDS: Polyethylene Glycol 3350 17 GM Packet PO SCH (08:25)
[2017-04-11] MEDS: HYDROcodone/Acetaminophen 10/325 mg Tablet PO PRN (14:55)
[2017-04-11] MEDS: clonazePAM 0.5 MG TAB PO SCH (20:40)
[2017-04-12] MEDS: HYDROcodone/Acetaminophen 10/325 mg Tablet PO PRN ×3 (02:16→18:10)
[2017-04-12] MEDS: Polyethylene Glycol 3350 17 GM Packet PO SCH (08:05)
[2017-04-12] MEDS: Ascorbic Acid 500 mg Chewable Tablet PO SCH (08:05)
[2017-04-12] MEDS: Spironolactone 25 MG TAB PO SCH ×2 (08:05→16:30)
[2017-04-12] MEDS: Calcium Carbonate + Vit D 1 TAB PO SCH (08:05)
[2017-04-12] MEDS: Furosemide 40 MG TAB PO SCH (08:06)
[2017-04-12] MEDS: Simethicone Chewable 80 MG TAB PO SCH ×4 (08:06→20:52)
[2017-04-12] MEDS: Ferrous Sulfate 325 MG TAB PO SCH ×2 (08:06→16:30)
[2017-04-12] MEDS: Atorvastatin Calcium 10 MG TAB PO SCH (08:07)
[2017-04-12] MEDS: Mag-Al Plus 1200 MG/1200 MG/120 MG/30 ML UDCUP PO PRN (16:29)
[2017-04-12] MEDS: Ondansetron ODT 4 MG TAB PO PRN (16:29)
[2017-04-12] MEDS: clonazePAM 0.5 MG TAB PO SCH (20:51)
[2017-04-13] MEDS: HYDROcodone/Acetaminophen 10/325 mg Tablet PO PRN ×3 (01:19→16:58)
[2017-04-13 05:41] LABS: ALT (SGPT) 10 U/L (8-55); AST (SGOT) 17 U/L (5-34); Albumin 2.5 g/dL (3.5-5.0); Alkaline Phosphatase 52 U/L (40-150); Anion Gap 11 mmol/L (10-20); BUN (Urea Nitrogen) 6 mg/dL (9.8-20.1); Bilirubin, Total 0.7 mg/dL (0.2-1.2); Calc. Creatinine Clearance 144 mL/min (70-130); Calcium 8.4 mg/dL (7.8-10.44); Carbon Dioxide 31 mmol/L (22-29); Chloride 99 mmol/L (98-107); Estimated GFR-MDRD Greater than 90; Globulin 3.4 g/dL (2.4-3.5); Glucose 100 mg/dL (70-105); Potassium 4.1 mmol/L (3.5-5.1); Protein, Total 5.9 g/dL (6.0-8.3); Sodium 137 mmol/L (136-145)
[2017-04-13 06:02] LABS: #Eosinphils 0.1 thou/uL (0.0-0.7); #Lymphocytes 0.4 thou/uL (1.20-3.40); #Monocytes 0.2 thou/uL (0.11-0.59); #Neutrophils 1.4 thou/uL (1.40-6.50); %Eosinophils 2.9 % (0.0-10.0); %Lymphocytes 18.7 % (21.0-51.0); %Monocytes 10.9 % (0.0-10.0); %Neutrophils 66.5 % (42.0-75.0); Hemoglobin 8.3 g/dL (12.0-16.0); Mean Corpuscular HGB CONC 31.3 g/dL (32.0-36.0); Mean Corpuscular Hemoglobin 26.2 pg (27.0-31.0); Mean Corpuscular Volume 83.8 fl (81.0-99.0); Mean Platelet Volume 8.9 fL (7.4-10.4); Platelet Count 88 thou/uL (130-400); RBC Distribution Width 17.5 % (11.5-14.5); Red Blood Cell (RBC) Count 3.18 mill/uL (4.20-5.40); White Blood Cell (WBC) Count 2.2 thou/uL (4.8-10.8)
[2017-04-13 06:03] LABS: PLT Morphology Comment PLT clumps seen-ADEQ
[2017-04-13] MEDS: Simethicone Chewable 80 MG TAB PO SCH ×4 (07:22→21:26)
[2017-04-13] MEDS: Polyethylene Glycol 3350 17 GM Packet PO SCH (08:17)
[2017-04-13] MEDS: Atorvastatin Calcium 10 MG TAB PO SCH (08:17)
[2017-04-13] MEDS: Ferrous Sulfate 325 MG TAB PO SCH ×2 (08:17→17:00)
[2017-04-13] MEDS: Calcium Carbonate + Vit D 1 TAB PO SCH (08:17)
[2017-04-13] MEDS: Ascorbic Acid 500 mg Chewable Tablet PO SCH (08:17)
[2017-04-13] MEDS: Furosemide 40 MG TAB PO SCH (08:17)
[2017-04-13] MEDS: Spironolactone 25 MG TAB PO SCH ×2 (08:18→17:00)
[2017-04-13 21:08] VITALS: BMI 30.3
[2017-04-13] MEDS: clonazePAM 0.5 MG TAB PO SCH (21:22)
[2017-04-14] MEDS: HYDROcodone/Acetaminophen 10/325 mg Tablet PO PRN ×3 (03:49→18:02)
[2017-04-14] MEDS: Ascorbic Acid 500 mg Chewable Tablet PO SCH (07:48)
[2017-04-14] MEDS: Simethicone Chewable 80 MG TAB PO SCH ×4 (07:48→20:50)
[2017-04-14] MEDS: Spironolactone 25 MG TAB PO SCH ×2 (07:49→18:04)
[2017-04-14] MEDS: Atorvastatin Calcium 10 MG TAB PO SCH (07:49)
[2017-04-14] MEDS: Furosemide 40 MG TAB PO SCH (07:49)
[2017-04-14] MEDS: Polyethylene Glycol 3350 17 GM Packet PO SCH (07:50)
[2017-04-14] MEDS: Ferrous Sulfate 325 MG TAB PO SCH ×2 (07:50→18:03)
[2017-04-14] MEDS: Calcium Carbonate + Vit D 1 TAB PO SCH (07:50)
[2017-04-14] MEDS: clonazePAM 0.5 MG TAB PO SCH (20:49)
[2017-04-15] MEDS: Polyethylene Glycol 3350 17 GM Packet PO SCH (08:09)
[2017-04-15] MEDS: Calcium Carbonate + Vit D 1 TAB PO SCH (08:10)
[2017-04-15] MEDS: Furosemide 40 MG TAB PO SCH (08:10)
[2017-04-15] MEDS: Spironolactone 25 MG TAB PO SCH ×2 (08:10→17:25)
[2017-04-15] MEDS: Ferrous Sulfate 325 MG TAB PO SCH ×2 (08:10→17:25)
[2017-04-15] MEDS: Ascorbic Acid 500 mg Chewable Tablet PO SCH (08:10)
[2017-04-15] MEDS: Atorvastatin Calcium 10 MG TAB PO SCH (08:10)
[2017-04-15] MEDS: Simethicone Chewable 80 MG TAB PO SCH ×4 (08:12→21:24)
[2017-04-15] MEDS: Ondansetron ODT 4 MG TAB PO PRN (10:10)
[2017-04-15] MEDS ORDERED: Sodium Chloride Irrig Solution 250 ML BOT ONE (10:42)
[2017-04-15] MEDS: Acetaminophen 500 MG TAB PO PRN (13:33)
[2017-04-15] MEDS: HYDROcodone/Acetaminophen 10/325 mg Tablet PO PRN ×2 (14:56→19:43)
[2017-04-15] MEDS: Mag-Al Plus 1200 MG/1200 MG/120 MG/30 ML UDCUP PO PRN (15:31)
[2017-04-15] MEDS: clonazePAM 0.5 MG TAB PO PRN (17:45)
[2017-04-15] MEDS: clonazePAM 0.5 MG TAB PO SCH (21:22)
[2017-04-16 08:20] VITALS: BP 118/58; TEMP 97.8
[2017-04-16] MEDS: Calcium Carbonate + Vit D 1 TAB PO SCH (08:22)
[2017-04-16] MEDS: Simethicone Chewable 80 MG TAB PO SCH ×2 (08:22→12:18)
[2017-04-16] MEDS: Furosemide 40 MG TAB PO SCH (08:23)
[2017-04-16] MEDS: Spironolactone 25 MG TAB PO SCH (08:23)
[2017-04-16] MEDS: Ascorbic Acid 500 mg Chewable Tablet PO SCH (08:23)
[2017-04-16] MEDS: Ferrous Sulfate 325 MG TAB PO SCH (08:24)
[2017-04-16] MEDS: Atorvastatin Calcium 10 MG TAB PO SCH (08:24)
[2017-04-16] MEDS: Polyethylene Glycol 3350 17 GM Packet PO SCH (08:24)
[2017-04-16] MEDS: HYDROcodone/Acetaminophen 10/325 mg Tablet PO PRN (12:19)
--- NOTE | 2017-04-17 19:51 | DIS ---
DATE OF ADMISSION: 03/05/2017 DATE OF DISCHARGE: 04/16/2017 ATTENDING PHYSICIAN: Yamila Brown D.O. DISCHARGE DIAGNOSES: 1. Squamous cell carcinoma of the anorectum, stage T3 N0 M0, status post chemoradiation therapy and abdominal perineal resection with colostomy performed on 02/24/2017. 2. Generalized weakness and gait and mobility. 3. Intractable pain. 4. Anemia secondary to surgery and comorbidities. 5. Chronic liver cirrhosis secondary to hepatitis and history of alcohol abuse. 6. Anxiety and depression. 7. Coronary artery disease. 8. Hypertension. HOSPITAL COURSE: This is a 56-year-old female that was admitted on after hospitalization in [place] related to her history of anorectal cancer. The patient was transferred here for physical therapy as well as postoperative management after her abdominal resection of her anorectal cancer and colostomy placement. The patient has had somewhat complicated postoperative course. Initially after admission, she did have significant pain as well as continued bleeding and oozing from her surgical site in her perineum. The first weekend she was here, she became hypotensive with this bleeding associated with a drop in her hemoglobin to 7.1. The patient has been unable to receive blood products due to her Denominational status. She was started on oral iron as well as vitamin C and repeat CT scan was performed. CT scan done on 03/15/2017 indicated a large right pleural effusion as well as chronic cholelithiasis with mild distention of the gallbladder. Additionally, noted an abnormal fluid collection in the deep pelvis at the location of the rectum as well as chronic portal hypertension and superior mesenteric vein thrombosis. After 2 to 3 days, the bleeding did stop and the patient's hemoglobin did stabilize and has remained stable, ranging between 7 and 8 since her admission. The fluid was believed to be noninfectious and decision per Dr. Ball, her primary surgeon was to increase her diuretics in an effort to manage her chronic liver cirrhosis with chronic hypoalbuminemia and edema to a better degree. The patient was started back on her spironolactone and Lasix, and did have significant improvement in her edema as well as her pain and her shortness of breath. The patient was also found shortly after admission to have redness and induration at the site of her surgery on her abdomen. She was given a followup appointment at Dr. Ball's office shortly after this was discovered who then opened the infection and drained the fluid collection. The patient was treated with IV antibiotics with Levaquin x 10 days as well as a wound VAC, which was required for approximately 2 weeks. By day of discharge, her wound was nearly completely healed with just a very superficial opening and no signs of further infection After these 2 initial complications with the wound infection as well as the fluid collection, she went on to have a mostly unremarkable postoperative course from there. After a week or two of the diuretics, her breathing improved and showed less signs of any fluid on her lungs as well as less edema in her legs and less pain in her abdominal and rectal area. The patient's biggest issue over the last 2 to 3 weeks has continued to be her intractable pain and worsening of her anxiety and depression. She was started on extended release of morphine and this helped significantly manage her pain around the clock basis and she has been using [place] as needed for any breakthrough pain, which has been working well for her without any major side effects. Her mood has significantly improved over the last 2 weeks and she has been able to get her appetite back as well as her motivation to able to participate with physical therapy. By day of discharge, the patient was ambulating 500 feet, washing, eating and independent on all of her ADLs without any major issues. She continues to have occasional epigastric biliary colic type pain due to her history of gallstones and this was managed mostly by watching her diet closely. MEDICATIONS UPON DISCHARGE: 1. Acetaminophen 1000 mg every 6 hours as needed. 2. Vitamin C 1000 mg once daily. 3. Atorvastatin 10 mg once daily. 4. Calcium and vitamin D 1500 - 400 units 1 tab every morning. 5. Ferrous sulfate 325 mg twice daily. 6. Furosemide 40 mg once daily. 7. Hydrocodone/acetaminophen 10/325 mg every 4 hours as needed. 8. Morphine sulfate extended release 15 mg twice daily. 9. Zofran ODT 4 mg every 6 hours as needed. 10. Pantoprazole 40 mg twice daily as needed. 11. Simethicone 120 mg with meals, as needed for gas pain. 12. Spironolactone 25 mg twice daily. 13. Clonazepam 0.25 mg 1 to 2 tabs daily as needed for anxiety. DIET UPON DISCHARGE: Regular diet with modifications to avoid high fat foods. ACTIVITIES: The patient is to resume her regular level of activity upon discharge. She has been discharged home with [facility] who will be coming out to participate in her wound and ostomy care as well as continue her assisted given her high degree of comorbidities and physical therapy as needed for her generalized weakness and gait imbalance. She has scheduled followup with me in 1 week as well as her general surgeon Dr. Ball the first week of May. GI
== END 2017-04-16 14:30 | disposition home health service (06) | DRG 374 ==
LOC: MADMS 17:33
PROVIDERS: ADMIT Family Medicine; ATTEND Family Medicine
DX: C21.0 Malignant neoplasm of anus, unspecified (principal); I81 Portal vein thrombosis; J90 Pleural effusion, not elsewhere classified; I85.10 Secondary esophageal varices without bleeding; K76.6 Portal hypertension; D62 Acute posthemorrhagic anemia; K91.840 Postprocedural hemorrhage of a digestive system organ or structure following a digestive system procedure; K94.02 Colostomy infection; I10 Essential (primary) hypertension; K74.60 Unspecified cirrhosis of liver; K80.70 Calculus of gallbladder and bile duct without cholecystitis without obstruction; I25.10 Atherosclerotic heart disease of native coronary artery without angina pectoris; F32.9 Major depressive disorder, single episode, unspecified; F41.9 Anxiety disorder, unspecified; E88.09 Other disorders of plasma-protein metabolism, not elsewhere classified; D69.6 Thrombocytopenia, unspecified; I95.81 Postprocedural hypotension; R73.03 Prediabetes; R53.1 Weakness; R26.9 Unspecified abnormalities of gait and mobility; Z92.21 Personal history of antineoplastic chemotherapy; Z92.3 Personal history of irradiation; Z95.1 Presence of aortocoronary bypass graft; Z66 Do not resuscitate; Z88.5 Allergy status to narcotic agent; Z80.0 Family history of malignant neoplasm of digestive organs; Y83.6 Removal of other organ (partial) (total) as the cause of abnormal reaction of the patient, or of later complication, without mention of misadventure at the time of the procedure; Y92.234 Operating room of hospital as the place of occurrence of the external cause
CPT/HCPCS: 36415; 71010; 74178; 80048; 80053; 81001; 85025; 85610; 87070; 87077; 87186; 87205; A4216; G8978-GP-CI; G8978-GP-CK; G8979-GP-CI; J1956; J2270; J7050; Q0162

== ENCOUNTER 2017-04-23 11:36 | Outpatient (CLI) | payer MEDICAID, MEDICARE ==
[2017-04-23 12:20] LABS: ALT (SGPT) 10 U/L (8-55); AST (SGOT) 19 U/L (5-34); Alkaline Phosphatase 65 U/L (40-150); Anion Gap 7 mmol/L (10-20); BUN (Urea Nitrogen) 9 mg/dL (9.8-20.1); Calc. Creatinine Clearance 0 mL/min (70-130); Calcium 9.1 mg/dL (7.8-10.44); Carbon Dioxide 31 mmol/L (22-29); Chloride 99 mmol/L (98-107); Estimated GFR-MDRD 89; Globulin 3.7 g/dL (2.4-3.5); Glucose 120 mg/dL (70-105); Potassium 3.9 mmol/L (3.5-5.1); Protein, Total 6.7 g/dL (6.0-8.3); Sodium 133 mmol/L (136-145)
[2017-04-23 13:11] LABS: #Eosinphils 0.1 thou/uL (0.0-0.7); #Lymphocytes 0.6 thou/uL (1.20-3.40); #Monocytes 0.4 thou/uL (0.11-0.59); #Neutrophils 2.4 thou/uL (1.40-6.50); %Basophils 0.9 % (0.0-1.0); %Eosinophils 3.1 % (0.0-10.0); %Lymphocytes 16.6 % (21.0-51.0); %Monocytes 11.7 % (0.0-10.0); %Neutrophils 67.6 % (42.0-75.0); Anisocytosis SLIGHT = 6-15 cells (100X) (0-5/hpf); Hemoglobin 10.4 g/dL (12.0-16.0); MDiff Complete? YES; Mean Corpuscular HGB CONC 30.8 g/dL (32.0-36.0); Mean Corpuscular Hemoglobin 25.8 pg (27.0-31.0); Mean Corpuscular Volume 83.9 fl (81.0-99.0); Mean Platelet Volume 8.4 fL (7.4-10.4); PLT Morphology Comment Appears Decreased; Platelet Count 109 thou/uL (130-400); RBC Distribution Width 18.7 % (11.5-14.5); Red Blood Cell (RBC) Count 4.03 mill/uL (4.20-5.40); White Blood Cell (WBC) Count 3.5 thou/uL (4.8-10.8)
== END 2017-04-23 11:37 | disposition home or self-care (01) ==
LOC: MADLABBHPM 11:36
PROVIDERS: ATTEND Family Medicine
DX: C19 Malignant neoplasm of rectosigmoid junction (principal)
CPT/HCPCS: 36415; 80053; 85025

== ENCOUNTER 2019-03-11 13:37 | Outpatient (CLI) | payer MEDICARE, OTHER ==
[2019-03-11 14:44] LABS: ALT (SGPT) 23 U/L (8-55); AST (SGOT) 19 U/L (5-34); Albumin 3.6 g/dL (3.5-5.0); Alkaline Phosphatase 75 U/L (40-150); Anion Gap 16 mmol/L (10-20); BUN (Urea Nitrogen) 11 mg/dL (9.8-20.1); Bilirubin, Total 1.7 mg/dL (0.2-1.2); Calc. Creatinine Clearance 0 mL/min (70-130); Calcium 8.9 mg/dL (7.8-10.44); Carbon Dioxide 24 mmol/L (22-29); Chloride 96 mmol/L (98-107); Estimated GFR-MDRD 45; Globulin 2.6 g/dL (2.4-3.5); Potassium 4.7 mmol/L (3.5-5.1); Protein, Total 6.2 g/dL (6.0-8.3); Sodium 131 mmol/L (136-145)
[2019-03-11 15:17] LABS: Glucose 670 mg/dL (70-105)
[2019-03-12 15:44] LABS: Hemoglobin A1c 8.7 % (4.0-6.0)
== END 2019-03-11 13:38 | disposition home or self-care (01) ==
LOC: MADLABBHPM 13:37
PROVIDERS: ATTEND Family Medicine
DX: K76.9 Liver disease, unspecified (principal); R73.02 Impaired glucose tolerance (oral); I25.10 Atherosclerotic heart disease of native coronary artery without angina pectoris
CPT/HCPCS: 36415; 80053; 83036

== ENCOUNTER 2020-10-26 15:23 | Outpatient (CLI) | payer MEDICARE, MEDICAID | END 2020-10-26 15:24 | disposition home or self-care (01) | LOC: MADRAD 15:23 | PROVIDERS: ATTEND Family Medicine | DX: M53.3 Sacrococcygeal disorders, not elsewhere classified (principal); R10.2 Pelvic and perineal pain | CPT/HCPCS: 72170; 72220 ==